=== PATIENT | male | born 1960 | race Caucasian/White ===

== ENCOUNTER 2017-11-25 18:13 | Emergency (ER) | payer OTHER, SELFPAY ==
--- NOTE | 2017-11-25 18:16 | DI.RAD.S_ITS ---
PROCEDURE: XR CHEST 1V INDICATIONS: chest pain TECHNIQUE: One view of the chest was acquired. COMPARISON: None. FINDINGS: Surgical changes and devices: None. Lungs and pleura: No pleural effusions or pneumothorax. Lungs are clear. Mediastinum: Mediastinal contours appear normal. Heart size is normal. Bones and chest wall: No suspicious bony lesions. Overlying soft tissues appear unremarkable. IMPRESSION: No acute cardiopulmonary findings. Dictated by: Batsheva Mcgill M.D. on 11/25/2017 at 18:42 Approved by: Batsheva Mcgill M.D. on 11/25/2017 at 18:43
[2017-11-25 18:19] VITALS: BP 113/83; PULSE 70; RESP 15; TEMP 36.8; O2SAT 100
--- NOTE | 2017-11-25 18:21 | ED.CHESTPAIN ---
HPI - Chest Pain General Chief Complaint: Chest Pain Stated Complaint: chest pain Time Seen by Provider: 11/25/17 18:15 Source: patient and family Mode of arrival: ambulatory Limitations: no limitations History of Present Illness HPI narrative: This is a 57-year-old male who comes to the emergency department with complaint of chest pain. Started 30 min prior to arrival. Patient tried 1 nitro sublingual which was not helpful. He he has had radiation to his right arm. He states the pain is a little bit better right now although still present at 3. Patient states that he stopped his Plavix recently as he scheduled to have a procedure on his prostate tomorrow. Patient did take aspirin x2 of 300 mg at home. Patient has a history of cardiac stent x3. He does continue to smoke. He has had umbilical hernia repair. He does take medication for blood pressure, cholesterol. He has a history of bladder cancer which has been treated. He denies alcohol. He had some Advil THC in the recent couple days. Related Data Home Medications Medication Instructions Recorded Confirmed amlodipine [Norvasc] 5 mg OR Q DAY #0 03/25/17 atorvastatin [Lipitor] 80 mg OR Q DAY #0 03/25/17 bupropion HCl [Wellbutrin SR] #0 03/25/17 carvedilol [Coreg] 25 mg OR BID #0 03/25/17 chlorthalidone 25 mg OR Q DAY #0 03/25/17 clopidogrel [Plavix] 75 mg OR Q DAY #0 03/25/17 hydrocodone-acetaminophen [[place]] 1 tab OR TID #0 03/25/17 lisinopril 20 mg OR BID #0 03/25/17 metformin [Glucophage XR] 1,000 mg OR BID #0 18 nitroglycerin [Nitrostat] PRN #0 03/25/17 Allergies Allergy/AdvReac Type Severity Reaction Status Date / Time penicillin G [PENICILLIN G] Allergy Unknown Hives Verified 11/25/17 18:26 Sulfa (Sulfonamide Allergy Unknown Hives Verified 11/25/17 18:26 Antibiotics) [SULFA (SULFONAMIDE ANTIBIOTICS)] Review of Systems Review of Systems All systems reviewed & are unremarkable except as noted in HPI and below Cardiovascular Reports chest pain and Reports radiating jaw, neck or arm pain Gastrointestinal Gastrointestinal: Denies nausea PFSH Medical History Dyslipidemia (Acute) History of bladder cancer (Acute) Hypertension (Acute) Surgical History H/O umbilical hernia repair (Acute) Hx of heart artery stent (Acute) Social History Smoking Status: Current every day smoker substance use type: marijuana Exam Narrative Exam Narrative: GENERAL: Alert and oriented x three, well-nourished, well-appearing male appears anxious. Slightly diaphoretic. Mild distress. HEENT: Head normocephalic, atraumatic, EOMI, pupils reactive, face symmetric, moist mucous membranes NECK: Supple, full range of motion CARDIOVASCULAR: Regular rate and rhythm without murmurs, rubs or gallops. RESPIRATORY: Breath sounds equal bilaterally, no wheezes rales or rhonchi. ABDOMEN: Soft, nontender. Normoactive bowel sounds all 4 quadrants. No guarding or rebound, rigidity, no mass, no bruit. EXTREMITIES: Normal range of motion, no clubbing or edema. Neurovascularly intact NEUROLOGICAL: Cranial nerves II through XII grossly intact. Moving all extremities SKIN: Warm, dry, no petechiae, no rashes or lesions. Initial Vital Signs Initial Vital Signs: Vital Signs Temperature 98.2 F 11/25/17 18:19 Pulse Rate 70 11/25/17 18:19 Respiratory Rate 15 11/25/17 18:19 Blood Pressure 113/83 11/25/17 18:19 Pulse Oximetry 100 11/25/17 18:19 Course Orders Ordered: ED Orders 11/25/17 18:15 B Type Natriuretic Peptide Stat Complete Blood Count AUTO DIFF Stat Comprehensive Metabolic Panel Stat Lipase Stat Partial Thromboplastin Time Stat Prothrombin Time INR Stat Troponin & CK Cardiac Panel Stat 11/25/17 18:16 XR chest 1V Stat EKG-12 Lead Stat Sodium Chloride (Normal Saline 0.9%) 1,000 mls @ 150 mls/hr IV CONT ZACHARY Heparin Sodium/Dextrose (Heparin Drip) 25,000 unit in 500 mls @ 24.192 mls/hr IV CONT ZACHARY; Protocol Discontinued Medications Aspirin (Aspirin Chew) 324 mg PO NOW ONE Stop: 11/25/17 18:16 Heparin Sodium (Porcine) (Heparin) 8,100 unit 80 unit/kg (8100 unit) IV NOW ONE Stop: 11/25/17 18:25 Vital Signs - 8 hr 11/25/17 18:19 Temperature 98.2 F Pulse Rate 70 Respiratory Rate 15 Blood Pressure 113/83 Pulse Oximetry 100 MDM - Chest Pain Lab Data Result diagrams: 11/25/17 18:15 11/25/17 18:15 Lab Results 11/25/17 Range/Units 18:15 WBC 8.3 (4.5-11.0) X10^3/uL RBC 5.02 (4.5-5.9) X10^6/uL Hgb 15.1 (13.5-17.5) g/dL Hct 43.9 (41-53) % MCV 87.3 (80-100) fL MCH 30.1 (26-34) PG MCHC 34.4 (30-36) % RDW 13.1 (11.6-14.8) % Plt Count 152 (150-400) X10^3/uL Neut % (Auto) 68.7 (50-75) % Lymph % (Auto) 21.8 L (25-40) % [place] % (Auto) 7.1 (3-14) % Eos % (Auto) 1.6 L (2-4) % Baso % (Auto) 0.8 (0-2) % Neut # (Auto) 5700 (0277-6887) /uL Imaging Data Chest x-ray: Attestation: I personally reviewed and interpreted this imaging study as follows: My impression: No wide mediastinum. No pneumothorax. No infiltrate. ECG Data Attestation: I personally reviewed and interpreted this ECG as follows: Prior ECG tracings: available for review Interpretation: ST elevation in leads 2 3 and AVF with depression in aVL and V2. Patient has a prior EKG with him from September 2012 which does not show any ST elevation or depression. Today's EKG shows a sinus rhythm. [facility] Narrative Medical decision making narrative: Patient's EKG suspicious for ST elevated [place]. Spoke with Dr. Barron at [facility] who accepts on plan for transport for cardiac intervention. Patient does have a prior EKG with him. These were both faxed forward to the receiving facility. Chest x-ray does not show a widened mediastinum or signs of dissection. Patient's vitals are stable here in the department. He took total of 600 aspirin at home. He had sublingual nitro at home. And received a heparin bolus 5000 unites in ED, weight >80kgs here in the emergency department. EMS present and patient being transported. is at bedside and aware of plan. Critical Care Time Critical Care Time: Yes Total Critical Care Time: 30 Attestation: The high probability of a clinically significant, sudden or life threatening deterioration of the [cardiac, respiratory] system(s) required my full and direct attention, intervention and personal management. The aggregate critical care time was [30] minutes. This time is in addition to time spent performing reported procedures but includes the following: [] Data Review and interpretation [] Patient assessment and monitoring of vital signs [] Documentation [] Medication orders and management Discharge Plan Departure Patient Disposition: [facility] Clinical Impression: ST elevation (STEMI) myocardial infarction Prescriptions: No Action amlodipine [Norvasc] 5 MG tablet 5 mg OR Q DAY Qty: 0 RF: 0 bupropion HCl [Wellbutrin SR] 150 MG tablet extended release 12 hr Qty: 0 RF: 0 atorvastatin [Lipitor] 80 MG tablet 80 mg OR Q DAY Qty: 0 RF: 0 carvedilol [Coreg] 25 MG tablet 25 mg OR BID Qty: 0 RF: 0 chlorthalidone 25 MG tablet 25 mg OR Q DAY Qty: 0 RF: 0 clopidogrel [Plavix] 75 MG tablet 75 mg OR Q DAY Qty: 0 RF: 0 hydrocodone-acetaminophen [[place]] 5 MG/325 MG tablet 1 tab OR TID Qty: 0 RF: 0 lisinopril 20 MG tablet 20 mg OR BID Qty: 0 RF: 0 nitroglycerin [Nitrostat] 0.4 MG tablet, sublingual PRNQty: 0 RF: 0 metformin [Glucophage XR] 500 MG tablet extended release 24 hr 1,000 mg OR BID Qty: 0 RF: 0
--- NOTE | 2017-11-25 18:24 | ED_ITS ---
HPI - Chest Pain General Chief Complaint: Chest Pain Stated Complaint: chest pain Time Seen by Provider: 11/25/17 18:15 Source: patient and family Mode of arrival: ambulatory Limitations: no limitations History of Present Illness HPI narrative: This is a 57-year-old male who comes to the emergency department with complaint of chest pain. Started 30 min prior to arrival. Patient tried 1 nitro sublingual which was not helpful. He he has had radiation to his right arm. He states the pain is a little bit better right now although still present at 3. Patient states that he stopped his Plavix recently as he scheduled to have a procedure on his prostate tomorrow. Patient did take aspirin x2 of 300 mg at home. Patient has a history of cardiac stent x3. He does continue to smoke. He has had umbilical hernia repair. He does take medication for blood pressure, cholesterol. He has a history of bladder cancer which has been treated. He denies alcohol. He had some Advil THC in the recent couple days. Related Data Home Medications Medication Instructions Recorded Confirmed amlodipine [Norvasc] 5 mg OR Q DAY #0 03/25/17 atorvastatin [Lipitor] 80 mg OR Q DAY #0 03/25/17 bupropion HCl [Wellbutrin SR] #0 03/25/17 carvedilol [Coreg] 25 mg OR BID #0 03/25/17 chlorthalidone 25 mg OR Q DAY #0 03/25/17 clopidogrel [Plavix] 75 mg OR Q DAY #0 03/25/17 hydrocodone-acetaminophen [[place]] 1 tab OR TID #0 03/25/17 lisinopril 20 mg OR BID #0 03/25/17 metformin [Glucophage XR] 1,000 mg OR BID #0 18 nitroglycerin [Nitrostat] PRN #0 03/25/17 Allergies Allergy/AdvReac Type Severity Reaction Status Date / Time penicillin G [PENICILLIN G] Allergy Unknown Hives Verified 11/25/17 18:26 Sulfa (Sulfonamide Allergy Unknown Hives Verified 11/25/17 18:26 Antibiotics) [SULFA (SULFONAMIDE ANTIBIOTICS)] Review of Systems Review of Systems All systems reviewed & are unremarkable except as noted in HPI and below Cardiovascular Reports chest pain and Reports radiating jaw, neck or arm pain Gastrointestinal Gastrointestinal: Denies nausea PFSH Medical History Dyslipidemia (Acute) History of bladder cancer (Acute) Hypertension (Acute) Surgical History H/O umbilical hernia repair (Acute) Hx of heart artery stent (Acute) Social History Smoking Status: Current every day smoker substance use type: marijuana Exam Narrative Exam Narrative: GENERAL: Alert and oriented x three, well-nourished, well- appearing male appears anxious. Slightly diaphoretic. Mild distress. HEENT: Head normocephalic, atraumatic, EOMI, pupils reactive, face symmetric, moist mucous membranes NECK: Supple, full range of motion CARDIOVASCULAR: Regular rate and rhythm without murmurs, rubs or gallops. RESPIRATORY: Breath sounds equal bilaterally, no wheezes rales or rhonchi. ABDOMEN: Soft, nontender. Normoactive bowel sounds all 4 quadrants. No guarding or rebound, rigidity, no mass, no bruit. EXTREMITIES: Normal range of motion, no clubbing or edema. Neurovascularly intact NEUROLOGICAL: Cranial nerves II through XII grossly intact. Moving all extremities SKIN: Warm, dry, no petechiae, no rashes or lesions. Initial Vital Signs Initial Vital Signs: Vital Signs Temperature 98.2 F 11/25/17 18:19 Pulse Rate 70 11/25/17 18:19 Respiratory Rate 15 11/25/17 18:19 Blood Pressure 113/83 11/25/17 18:19 Pulse Oximetry 100 11/25/17 18:19 Course Orders Ordered: ED Orders 11/25/17 18:15 B Type Natriuretic Peptide Stat Complete Blood Count AUTO DIFF Stat Comprehensive Metabolic Panel Stat Lipase Stat Partial Thromboplastin Time Stat Prothrombin Time INR Stat Troponin & CK Cardiac Panel Stat 11/25/17 18:16 XR chest 1V Stat EKG-12 Lead Stat Sodium Chloride (Normal Saline 0.9%) 1,000 mls @ 150 mls/hr IV CONT ZACHARY Heparin Sodium/Dextrose (Heparin Drip) 25,000 unit in 500 mls @ 24.192 mls/hr IV CONT ZACHARY; Protocol Discontinued Medications Aspirin (Aspirin Chew) 324 mg PO NOW ONE Stop: 11/25/17 18:16 Heparin Sodium (Porcine) (Heparin) 8,100 unit 80 unit/kg (8100 unit) IV NOW ONE Stop: 11/25/17 18:25 Vital Signs - 8 hr 11/25/17 18:19 Temperature 98.2 F Pulse Rate 70 Respiratory Rate 15 Blood Pressure 113/83 Pulse Oximetry 100 MDM - Chest Pain Lab Data Result diagrams: 11/25/17 18:15 11/25/17 18:15 Lab Results 11/25/17 Range/Units 18:15 WBC 8.3 (4.5-11.0) X10^3/uL RBC 5.02 (4.5-5.9) X10^6/uL Hgb 15.1 (13.5-17.5) g/dL Hct 43.9 (41-53) % MCV 87.3 (80-100) fL MCH 30.1 (26-34) PG MCHC 34.4 (30-36) % RDW 13.1 (11.6-14.8) % Plt Count 152 (150-400) X10^3/uL Neut % (Auto) 68.7 (50-75) % Lymph % (Auto) 21.8 L (25-40) % [place] % (Auto) 7.1 (3-14) % Eos % (Auto) 1.6 L (2-4) % Baso % (Auto) 0.8 (0-2) % Neut # (Auto) 5700 (2475-3815) /uL Imaging Data Chest x-ray: Attestation: I personally reviewed and interpreted this imaging study as follows: My impression: No wide mediastinum. No pneumothorax. No infiltrate. ECG Data Attestation: I personally reviewed and interpreted this ECG as follows: Prior ECG tracings: available for review Interpretation: ST elevation in leads 2 3 and AVF with depression in aVL and V2. Patient has a prior EKG with him from September 2012 which does not show any ST elevation or depression. Today's EKG shows a sinus rhythm. [facility] Narrative Medical decision making narrative: Patient's EKG suspicious for ST elevated [place]. Spoke with Dr. Barron at [facility] who accepts on plan for transport for cardiac intervention. Patient does have a prior EKG with him. These were both faxed forward to the receiving facility. Chest x-ray does not show a widened mediastinum or signs of dissection. Patient's vitals are stable here in the department. He took total of 600 aspirin at home. He had sublingual nitro at home. And received a heparin bolus 5000 unites in ED, weight >80kgs here in the emergency department. EMS present and patient being transported. is at bedside and aware of plan. Critical Care Time Critical Care Time: Yes Total Critical Care Time: 30 Attestation: The high probability of a clinically significant, sudden or life threatening deterioration of the [cardiac, respiratory] system(s) required my full and direct attention, intervention and personal management. The aggregate critical care time was [30] minutes. This time is in addition to time spent performing reported procedures but includes the following: [] Data Review and interpretation [] Patient assessment and monitoring of vital signs [] Documentation [] Medication orders and management Discharge Plan Departure Patient Disposition: [facility] Clinical Impression: ST elevation (STEMI) myocardial infarction Prescriptions: No Action amlodipine [Norvasc] 5 MG tablet 5 mg OR Q DAY Qty: 0 RF: 0 bupropion HCl [Wellbutrin SR] 150 MG tablet extended release 12 hr Qty: 0 RF: 0 atorvastatin [Lipitor] 80 MG tablet 80 mg OR Q DAY Qty: 0 RF: 0 carvedilol [Coreg] 25 MG tablet 25 mg OR BID Qty: 0 RF: 0 chlorthalidone 25 MG tablet 25 mg OR Q DAY Qty: 0 RF: 0 clopidogrel [Plavix] 75 MG tablet 75 mg OR Q DAY Qty: 0 RF: 0 hydrocodone-acetaminophen [[place]] 5 MG/325 MG tablet 1 tab OR TID Qty: 0 RF: 0 lisinopril 20 MG tablet 20 mg OR BID Qty: 0 RF: 0 nitroglycerin [Nitrostat] 0.4 MG tablet, sublingual PRNQty: 0 RF: 0 metformin [Glucophage XR] 500 MG tablet extended release 24 hr 1,000 mg OR BID Qty: 0 RF: 0
--- NOTE | 2017-11-25 18:25 | PC.NURSE ---
pt with diaphoretic, reports, chest and arm pain , better at 4/10
[2017-11-25 18:28] LABS: Add Manual Diff / Slide Review NO; Basophils Percent Auto 0.8 % (0-2); Eosinophils Percent Auto 1.6 % (2-4); Hematocrit 43.9 % (41-53); Hemoglobin 15.1 g/dL (13.5-17.5); Lymphocytes Percent Auto 21.8 % (25-40); Mean Corpuscular HGB Conc 34.4 % (30-36); Mean Corpuscular Hemoglobin 30.1 PG (26-34); Mean Corpuscular Volume 87.3 fL (80-100); Monocytes Percent Auto 7.1 % (3-14); Neutrophils Absolute Auto 5700 /uL (3000-5900); Neutrophils Percent Auto 68.7 % (50-75); Platelet Count 152 X10^3/uL (150-400); Red Blood Cell Count 5.02 X10^6/uL (4.5-5.9); Red Cell Distribution Width 13.1 % (11.6-14.8); White Blood Cell Count 8.3 X10^3/uL (4.5-11.0)
[2017-11-25 18:38] LABS: INR 1.1 (0.9-1.3); Prothrombin Time 11.4 SECONDS (10.1-12.7)
[2017-11-25 18:41] LABS: PTT Partial Thromboplastin Tim 32 SECONDS (26.4-36.2)
[2017-11-25 18:44] LABS: Alanine Aminotransferase 47 IU/L (21-72); Albumin Globulin Ratio 1.9 (1.0-2.8); Alkaline Phosphatase 77 U/L (38-126); Aspartate Aminotransferase 34 IU/L (17-59); BUN Creatinine Ratio 31.3 (6-22); Bilirubin Total 0.7 mg/dL (0.2-1.3); Blood Urea Nitrogen 25 mg/dL (9-20); Carbon Dioxide 31 mmol/L (22-32); Chloride 98 mmol/L (98-107); Creatine Kinase 69 U/L (55-170); Estimated Glomerular Filt Rate > 60.0 mL/min (>60); Globulin 2.7 g/dL (1.7-4.1); Glucose 143 mg/dL (70-100); HEMOLYSIS 34 (0-50); Lipase 252 U/L (23-300); Potassium 3.8 mmol/L (3.4-5.1); Sodium 142 mmol/L (137-145); Total Protein 7.7 g/dL (6.3-8.2)
[2017-11-25] MEDS: HEPARIN DRIP 25,000 UNIT/500 ML IV.SOLN 24.192 UNIT IV (18:44)
[2017-11-25 18:45] VITALS: BP 120/74; PULSE 64; RESP 17; O2SAT 100
[2017-11-25 18:45] LABS: B Type Natriuretic Peptide < 30.0 (<100)
[2017-11-25] MEDS: HEPARIN 5,000 UNIT/ML VIAL 5000 UNIT IV (18:45)
[2017-11-25 18:58] LABS: Troponin I < 0.012 ng/mL (0.01-0.034)
--- NOTE | 2017-11-28 15:10 | PC.NURSE ---
late entry: Pt was transferred with Heparin running.
== END 2017-11-25 18:45 | disposition short-term general hospital (02) ==
PROVIDERS: Emergency Provider Emergency Medicine
DX: I21.3 ST elevation (STEMI) myocardial infarction of unspecified site (principal)
CPT/HCPCS: 71045; 80053; 82550; 83690; 83880; 84484; 85025; 85610; 85730; 93005; 93010; 96374; 99282; 99291; J1644

== ENCOUNTER → 2017-11-28 11:58 | Outpatient (CLI) | payer OTHER, SELFPAY ==
[2017-11-28 13:46] LABS: BUN Creatinine Ratio 21.3 (6-22); Blood Urea Nitrogen 17 mg/dL (9-20); Calcium 9.7 mg/dL (8.4-10.2); Carbon Dioxide 32 mmol/L (22-32); Chloride 98 mmol/L (98-107); Estimated Glomerular Filt Rate > 60.0 mL/min (>60); Glucose 102 mg/dL (70-100); HEMOLYSIS < 15 (0-50); Potassium 4.3 mmol/L (3.4-5.1); Sodium 141 mmol/L (137-145)
== END ==
PROVIDERS: PCP Internal Medicine; Visit Provider Internal Medicine Cardiovascular Disease
DX: I25.10 Atherosclerotic heart disease of native coronary artery without angina pectoris (principal)
CPT/HCPCS: 36415; 80048

== ENCOUNTER → 2018-04-09 12:46 | Outpatient (CLI) | payer OTHER, SELFPAY ==
[2018-04-09 15:50] LABS: BUN Creatinine Ratio 25.7 (6-22); Blood Urea Nitrogen 18 mg/dL (9-20); Calcium 10.4 mg/dL (8.4-10.2); Carbon Dioxide 29 mmol/L (22-32); Chloride 97 mmol/L (98-107); Estimated Glomerular Filt Rate > 60.0 mL/min (>60); Glucose 176 mg/dL (70-100); HEMOLYSIS 16 (0-50); Potassium 3.7 mmol/L (3.4-5.1); Sodium 138 mmol/L (137-145)
== END ==
PROVIDERS: PCP Internal Medicine; Visit Provider Internal Medicine Cardiovascular Disease
DX: E87.6 Hypokalemia (principal); I10 Essential (primary) hypertension
CPT/HCPCS: 36415; 80048

== ENCOUNTER → 2019-01-15 13:37 | Outpatient (CLI) | payer OTHER, SELFPAY ==
[2019-01-15 14:15] LABS: Alanine Aminotransferase 34 IU/L (<50); Albumin 4.9 g/dL (3.5-5.0); Albumin Globulin Ratio 1.9 (1.0-2.8); Alkaline Phosphatase 80 U/L (38-126); Aspartate Aminotransferase 28 IU/L (17-59); Bilirubin Total 0.5 mg/dL (0.2-1.3); Blood Urea Nitrogen 20 mg/dL (9-20); Calcium 9.7 mg/dL (8.4-10.2); Carbon Dioxide 29 mmol/L (22-32); Chloride 97 mmol/L (98-107); Cholesterol 120 mg/dL (140-199); Estimated Glomerular Filt Rate > 60.0 mL/min (>60); Globulin 2.6 g/dL (1.7-4.1); Glucose 114 mg/dL (80-110); HDL Cholesterol 36 mg/dL (40-60); HEMOLYSIS < 15 (0-50); LDL Cholesterol Calculated 54 mg/dL (<100); Potassium 3.5 mmol/L (3.4-5.1); Sodium 137 mmol/L (137-145); Total Protein 7.5 g/dL (6.3-8.2); Triglycerides 151 mg/dL (35-150)
[2019-01-15 17:35] LABS: Hemoglobin A1C% w Est Avg Glu 6.9 % (4.0-6.0)
== END ==
PROVIDERS: Visit Provider Internal Medicine
DX: I10 Essential (primary) hypertension (principal); E11.9 Type 2 diabetes mellitus without complications; E78.5 Hyperlipidemia, unspecified
CPT/HCPCS: 36415; 80053; 80061; 83036

== ENCOUNTER → 2019-01-21 17:48 | Outpatient (CLI) | payer BC, SELFPAY ==
--- NOTE | 2019-01-21 | DI.MRI.S_ITS ---
PROCEDURE: MR LUMBAR SPINE WO CON INDICATIONS: RADICULOPATHY, LUMBOSACRAL REGION TECHNIQUE: Noncontrast sagittal T1 spin echo and T2 fast echo, sagittal STIR, axial T1 and T2 fast spin echo through the lumbar spine. In cases with scoliosis, additional coronal T2 fast spin echo may be performed. COMPARISON: None. FINDINGS: Image quality: Excellent. Alignment and Curvature: There is normal bony alignment. Bone Marrow: Marrow is of normal overall signal. Chronic appearing anterior wedge compression deformity at T12 level is seen with up to 20% loss of T12 vertebral body height anteriorly. No acute vertebral body compression fractures. Spinal Cord: Conus medullaris terminates at the T12-L1 level. Visualized cord demonstrates normal signal and size. Paraspinous Soft Tissues: No paravertebral masses. L1-L2: Normal appearance. L2-L3: Normal appearance. L3-L4: Broad-based disc bulge and mild central disc herniation with bilateral facet arthrosis is seen with mild central canal stenosis. No significant neuroforaminal narrowing. L4-L5: Decreased intervertebral disc space is seen. Diffuse disc bulge and central disc herniation with bilateral facet arthrosis and mild hypertrophy of ligamentum flavum is seen. There is mild to moderate central canal stenosis and moderate left-sided neuroforaminal narrowing with bulging disc likely contacting the left L4 and L5 nerve roots. Mild right-sided neuroforaminal narrowing is also seen. L5-S1: Normal appearance. IMPRESSION: 1. Degenerative disc bulge and bilateral facet arthrosis at L3-4 and L4-5 levels with mild central canal stenosis and left worse than right bilateral neuroforaminal narrowing as above. 2. No acute compression fracture or spondylolisthesis. Chronic appearing compression deformity involving T12 as above. Dictated by: Rasta Duenas M.D. on 01/22/2019 at 9:58 Approved by: Rasta Duenas M.D. on 01/22/2019 at 10:03
== END ==
PROVIDERS: Visit Provider Internal Medicine
DX: M51.16 Intervertebral disc disorders with radiculopathy, lumbar region (principal); M47.816 Spondylosis without myelopathy or radiculopathy, lumbar region; M48.061 Spinal stenosis, lumbar region without neurogenic claudication
CPT/HCPCS: 72148

== ENCOUNTER → 2019-07-30 10:01 | Outpatient (CLI) | payer OTHER, SELFPAY ==
[2019-07-30 11:52] LABS: Hemoglobin A1C% w Est Avg Glu 7.2 % (4.0-6.0)
[2019-07-30 12:10] LABS: Alanine Aminotransferase 37 IU/L (<50); Albumin 4.6 g/dL (3.5-5.0); Albumin Globulin Ratio 1.7 (1.0-2.8); Alkaline Phosphatase 67 U/L (38-126); Aspartate Aminotransferase 29 IU/L (17-59); BUN Creatinine Ratio 21.4 (6-22); Bilirubin Total 0.5 mg/dL (0.2-1.3); Blood Urea Nitrogen 15 mg/dL (9-20); Carbon Dioxide 33 mmol/L (22-32); Chloride 99 mmol/L (98-107); Cholesterol 111 mg/dL (140-199); Estimated Glomerular Filt Rate > 60.0 mL/min (>60); Globulin 2.7 g/dL (1.7-4.1); Glucose 175 mg/dL (80-110); HDL Cholesterol 34 mg/dL (40-60); HEMOLYSIS < 15 (0-50); LDL Cholesterol Calculated 48 mg/dL (<100); Potassium 4.6 mmol/L (3.4-5.1); Sodium 137 mmol/L (137-145); Total Protein 7.3 g/dL (6.3-8.2); Triglycerides 143 mg/dL (35-150)
== END ==
PROVIDERS: PCP Internal Medicine; Referring Provider Internal Medicine; Visit Provider Internal Medicine
DX: E11.9 Type 2 diabetes mellitus without complications (principal); E78.5 Hyperlipidemia, unspecified
CPT/HCPCS: 36415; 80053; 80061; 83036

== ENCOUNTER → 2019-11-15 10:17 | Outpatient (CLI) | payer OTHER, SELFPAY ==
[2019-11-15 11:48] LABS: Hemoglobin A1C% w Est Avg Glu 6.6 % (4.0-6.0)
[2019-11-15 11:53] LABS: Alanine Aminotransferase 31 IU/L (<50); Aspartate Aminotransferase 24 IU/L (17-59); Cholesterol 109 mg/dL (140-199); Creatine Kinase 49 U/L (55-170); HDL Cholesterol 35 mg/dL (40-60); LDL Cholesterol Calculated 47 mg/dL (<100); Triglycerides 133 mg/dL (35-150)
[2019-11-15 11:57] LABS: BUN Creatinine Ratio 20.8 (6-22); Blood Urea Nitrogen 16 mg/dL (9-20); Calcium 9.8 mg/dL (8.4-10.2); Carbon Dioxide 32 mmol/L (22-32); Chloride 101 mmol/L (98-107); Estimated Glomerular Filt Rate > 60.0 mL/min (>60); Glucose 160 mg/dL (80-110); HEMOLYSIS < 15 (0-50); Potassium 3.8 mmol/L (3.4-5.1); Sodium 138 mmol/L (137-145)
[2019-11-15 12:05] LABS: LDL Cholesterol Direct 52 mg/dL (<100)
== END ==
PROVIDERS: Specialist; PCP Internal Medicine; Referring Provider Internal Medicine Cardiovascular Disease; Visit Provider Internal Medicine Cardiovascular Disease
DX: E78.5 Hyperlipidemia, unspecified (principal); N13.8 Other obstructive and reflux uropathy; N40.1 Benign prostatic hyperplasia with lower urinary tract symptoms; E11.9 Type 2 diabetes mellitus without complications; I10 Essential (primary) hypertension
CPT/HCPCS: 36415; 80048; 80061; 82550; 83036; 83721; 84153; 84450; 84460

== ENCOUNTER → 2019-11-16 10:20 | Outpatient (CLI) | payer OTHER, SELFPAY ==
[2019-11-17 16:55] LABS: COVID19 Sendout Not Detected (Not Detect)
== END ==
PROVIDERS: PCP Internal Medicine; Visit Provider Physician Assistant
DX: Z01.812 Encounter for preprocedural laboratory examination (principal)
CPT/HCPCS: 87635

== ENCOUNTER 2019-11-19 11:19 | Day surgery (SDC) | payer OTHER, SELFPAY ==
--- NOTE | 2019-11-19 | PATH_ITS ---
[facility] Accession Number: [id number] . 01 Material submitted: . colon - TRANSVERSE COLON POLYPS . 02 Diagnosis: Transverse Colon, Polyps: Tubular adenoma x2. MRV 11/21/2019 1029 Local . 02 Electronically signed: . Edwardo Merida MD, PhD, Pathologist NPI- [id number] . 01 Gross description: . TRANSVERSE COLON POLYPS: Received in formalin are 2 fragment(s) of betts, soft tissue measuring 0.5 x 0.4 x 0.3 cm to 0.4 x 0.3 x 0.1 cm submitted entirely in 1 cassette(s) /QBJ 11/20/2019 0849 Local . 02 Pathologist provided ICD-10: D12.3 . 02 CPT . 291922 Performed at: 01 [facility] [address] [id number] MD Сергей Huff MD Phone: [phone] Performed at: [address] [facility] [address] [place], [place] [id number] MD Sue Mock MD Phone: [phone]
--- NOTE | 2019-11-19 08:24 | PM.HP.1 ---
History of Present Illness History of Present Illness Date Patient Seen: 11/19/19 Chief complaint: DX COLONOSCOPY Narrative: 59-year-old male with extensive cardiac history, type 2 diabetes, currently on Plavix who is being seen for polyp surveillance. Patient History Medical History (Updated 10/20/19 @ 15:21 by Perico Cohn MD) BPH w urinary obs/LUTS (Chronic) Coronary heart disease (Chronic) Essential hypertension (Chronic) H/O adenomatous polyp of colon (Inactive) History of primary bladder cancer (Chronic ~2006) Low back pain (Chronic ~1982) Mixed hyperlipidemia (Chronic) Type 2 diabetes mellitus (Chronic) Surgical History H/O hernia repair (Acute) H/O umbilical hernia repair (Acute) Hx of heart artery stent (Acute) Family & Social History Family History (Updated 10/20/19 @ 15:10 by Perico Cohn MD) Brother Crohn disease Tobacco & Substance use: Smoking Status Current every day smoker alcohol intake frequency 0-2 drinks per day Substance Use Type does not use Meds Home Medications and Allergies Home Medications Medication Instructions Recorded Confirmed Type nitroglycerin [Nitrostat] PRN #0 03/25/17 10/20/19 History alprazolam 1 mg tablet 1 mg PO BID PRN #2 tab 09/23/19 10/20/19 Rx Glucose Test Strips #1 ea 10/20/19 History chlorthalidone 25 mg tablet 25 mg PO Q DAY #0 10/20/19 10/20/19 History clopidogrel 75 mg tablet 75 mg PO Q DAY #0 10/20/19 10/20/19 History lisinopril 20 mg tablet 20 mg PO BID #0 10/20/19 10/20/19 History metformin 500 mg tablet,extended 500 mg PO BID #0 tab 10/20/19 10/20/19 History release 24 hr atorvastatin 80 mg tablet 80 mg PO Q DAY #90 tab 11/07/19 Rx carvedilol 12.5 mg tablet 12.5 mg PO BID #180 tab 11/07/19 Rx Allergies Allergy/AdvReac Type Severity Reaction Status Date / Time penicillin G [PENICILLIN G] Allergy Unknown Hives Verified 11/19/19 11:33 Sulfa (Sulfonamide Allergy Unknown Hives Verified 11/19/19 11:33 Antibiotics) [SULFA (SULFONAMIDE ANTIBIOTICS)] Exam Narrative Exam Narrative: General: Patient is overweight, not in apparent distress Cardiovascular: Regular rate and rhythm, no murmurs, rubs, or gallops; no evidence of edema; no palpable abdominal aortic aneurysm Gastrointestinal: Normoactive bowel sounds, soft, nontender, nondistended, no rebound tenderness, no hepatosplenomegaly, no evidence of hernia Assessment & Plan Assessment & Plan narrative: 59-year-old male who is here for colon polyp surveillance. Patient has been off Plavix for 5 days. Regarding the procedure(s), the risks and potential complications, benefits, and alternatives (including not doing the procedure) were discussed with the patient. The risks include but are not limited to bleeding, splenic injury, infection, perforation which may require surgical intervention, missed lesions, and adverse reactions to sedative medicines. After a question and answer period, the patient agreed to proceed with the procedure(s) and gives informed consent.
[2019-11-19] MEDS: SODIUM CHLORIDE 0.9% 1,000 ML 70 ML IV (11:33)
[2019-11-19 11:43] VITALS: BP 139/86; PULSE 71; RESP 18; TEMP 36.9; O2SAT 99; BMI 27.7
--- NOTE | 2019-11-19 12:06 | PM.OP.ENDO ---
Operative Date/Time/Diagnoses Date of procedure: 11/19/19 Procedure Notes Procedure in detail: Surgeon: Zachary Nation MD Procedure: Colonoscopy with polypectomy Preoperative diagnosis: Colon polyp surveillance Postoperative diagnosis: Transverse colon polyps x2 status post polypectomy, grade 1 internal hemorrhoids Medications: Conscious sedation using 6 mg IV of Midazolam and 100 mcg IV of Fentanyl Preanesthesia Assessment An H and P was performed/updated and the Px?s ASA class is 2. The procedure was discussed in detail with the patient. The potential risks and complications including infection, bleeding, missed lesions, perforation, need for surgery in case of perforation, prolonged hospital stay, and were explained. A brief question and answer period was allotted and once all questions were answered, informed consent was obtained. The patient was brought back to the procedure room and placed on standard monitoring. The patient?s vital signs were monitored continuously throughout the entire procedure. Prior to starting, a timeout was performed to confirm the patient?s identity, allergies, medications, and procedure. Procedure in detail The patient was placed in left lateral decubitus position and once adequate sedation was obtained a COLTON was performed. The digital rectal examination did not reveal any palpable lesions, and a prostate did not seem enlarged. The tip of the colonoscope was placed in the anal canal and advanced without difficulty all the way to the cecum which was identified by the appendiceal orifice and the ileocecal valve. The terminal ileum was intubated to a distance of 5 cm from the ileocecal valve with no evidence of any mucosal abnormalities. The colonoscope was then brought back to the cecum and careful examination of all hoyt of the colon was performed with irrigation of any residual stool. In the transverse colon, there was note of 2 sessile polyps measuring 4 mm which were removed by means of cold snare. Resection and retrieval was complete with minimal bleeding. Retroflexion was performed in the rectum which revealed grade 1 internal hemorrhoids. The patient tolerated the procedure well and will be brought back to the recovery area to be discharged once criteria are met. The prep was judged to be good and adequate to identify polyps less than 5 mm. The withdrawal time was 14 minutes. The total physician intraservice time was 23 minutes. Complications There were no complications and estimated blood loss was minimal. Recommendations: Resume previous diet Continue outPx medications Restart Plavix today Follow up pathology results Repeat colonoscopy in 5 or 7 years, depending on pathology results An emergency contact number was given to the patient for any complications related to the procedure
[2019-11-19] MEDS: MIDAZOLAM 5 MG/5 ML VIAL IV (12:34)
[2019-11-19 12:36] VITALS: BP 122/73; PULSE 73; RESP 12; TEMP 36.4; O2SAT 98
[2019-11-19] MEDS: fentaNYL 250 MCG/5 ML INJ IV (12:36)
[2019-11-19 12:41] VITALS: BP 129/79; PULSE 74; RESP 13; O2SAT 99
[2019-11-19 12:49] VITALS: BP 116/75; PULSE 66; RESP 14; TEMP 36.8; O2SAT 100
[2019-11-19 13:02] VITALS: BP 118/77; PULSE 72; RESP 16; TEMP 36.8; O2SAT 100
== END 2019-11-19 13:05 | disposition home or self-care (01) ==
PROVIDERS: PCP Internal Medicine; Referring Provider Internal Medicine Gastroenterology; Visit Provider Internal Medicine Gastroenterology
PROC: 0DJD8ZZ Inspection of Lower Intestinal Tract, Via Natural or Artificial Opening Endoscopic (ICD-10-PCS; CPT 45378; principal; 2019-11-19 12:30)
DX: Z12.11 Encounter for screening for malignant neoplasm of colon (principal); Z86.010 Personal history of colon polyps; E11.9 Type 2 diabetes mellitus without complications; F17.210 Nicotine dependence, cigarettes, uncomplicated; E78.5 Hyperlipidemia, unspecified; I10 Essential (primary) hypertension; I25.10 Atherosclerotic heart disease of native coronary artery without angina pectoris; N40.1 Benign prostatic hyperplasia with lower urinary tract symptoms; Z79.01 Long term (current) use of anticoagulants; K64.0 First degree hemorrhoids; D12.3 Benign neoplasm of transverse colon
CPT/HCPCS: 45385; J2250; J3010

== ENCOUNTER → 2020-01-14 13:20 | Outpatient (CLI) | payer OTHER, SELFPAY ==
--- NOTE | 2020-01-14 15:43 | DIET.PN ---
Diabetes Intake: Initial Assessment Assess: Mr. Bullock is a 59 yom referred for type 2 diabetes. He reports 5 yr hx with good control. Endorses recent changes in eating habits related to environmental stress and emotional eating. He has not been able to exercise due to back pain from an injury in his 20?s, and has associated neuropathy. He lives with his on a boat. He currently takes metformin, but he would like to discontinue by managing diabetes through improved lifestyle habits. Labs: Per pt report: A1c: 7.2 Meds: metf 500mg BID Diet: per 24 hr recall: B: scrambled eggs w/ veg and cheese; coffee L: chowders; taste testing dinner; saltines w/ cheese D: steak; pot roast w/ fresh vegetables Sn: 3/4 cup cottage cheese w/ pear halves; blueberries w/ milk Wt: 225lb Ht: 73.5in BMI: 29.3 BP: DX: Altered nutrition related laboratory values related to impaired glucose metabolism, lack of previous exposure to nutrition information as evidenced by pt report, diagnosis of diabetes, previous diet high in refined carbohydrates. Intervention: 1. Completed intake assessment. Discussed barriers to care. 2. Discussed pathophysiology of diabetes. Reviewed A1c and its correlation to blood glucose numbers. Discussed recommended BG ranges. 3. Discussed importance of self-monitoring, how often, and when to check. 4. Reviewed hyper/hypoglycemia and treatment. 5. Reviewed safe disposal of equipment (strip/lancets/insulin needles). 6. Created SMART goals for pt self-care and success. 7. Discussed program curriculum outline and class needs based on individual goals. SMART Goals: 1. Pt would like to get off of diabetes medication by improving dietary habits (carb consistency, label reading, portion control), walking daily, and goal weight of 200lb. Monitor/Evaluate: Pt will attend full DSME program. Basic Nutrition class scheduled for Feb 11.
== END ==
PROVIDERS: PCP Internal Medicine; Referring Provider Internal Medicine; Visit Provider Internal Medicine
DX: E11.40 Type 2 diabetes mellitus with diabetic neuropathy, unspecified (principal); M54.9 Dorsalgia, unspecified; Z71.3 Dietary counseling and surveillance; Z79.84 Long term (current) use of oral hypoglycemic drugs
CPT/HCPCS: G0108

== ENCOUNTER → 2020-03-03 13:44 | Outpatient (CLI) | payer OTHER, SELFPAY ==
--- NOTE | 2020-03-03 16:18 | DIET.PN ---
Diabetes: Healthy Eating 1 Intervention: ? Discussed pathophysiology of diabetes and impact of nutrition/diet on blood sugar control.? Discussed fed versus non-fed state.?? ? Reviewed importance of Balance, Variety, and Moderation. ? Discussed the effect of carbohydrates/protein/fat on blood sugar control.? ? Stressed importance of consistent carbohydrate intake at each meal and provided instructions for recommended servings/portions of carbohydrates/protein per meal. Provided educational material. ? Reviewed carbohydrate counting and measuring carbohydrate content via serving sizes and reading nutrition labels.? Provided handouts.?? ? Discussed the difference between simple versus complex carbohydrates and the effect of fiber on blood sugar control.? Discussed various methods to increase fiber content in diet. ? Discussed the plate method for creating more carbohydrate conscious balanced meals. ? Stressed importance of meal timing and not going >4-5 hours between meals. Encouraged adding protein to evening snack to support glucose control overnight. ? Discussed importance of making dietary habits part of lifestyle change.
== END ==
PROVIDERS: PCP Internal Medicine; Referring Provider Internal Medicine; Visit Provider Internal Medicine
DX: E11.9 Type 2 diabetes mellitus without complications (principal)
CPT/HCPCS: G0109

== ENCOUNTER → 2020-03-12 16:43 | Outpatient (CLI) | payer OTHER, SELFPAY ==
[2020-03-12 16:51] LABS: RBC Urine None Seen (0-5/HPF)
[2020-03-12 17:08] LABS: Appearance Urine UA SL CLOUDY; Bilirubin Urine UA NEGATIVE (NEGATIVE); Color Urine UA YELLOW; Glucose Urine UA NEGATIVE (Negative); Ketones Urine UA NEGATIVE (NEGATIVE); Leukocyte Esterase Urine UA 2+ (NEGATIVE); Nitrite Urine UA NEGATIVE (Negative); Occult Blood Urine UA NEGATIVE (Negative); Protein Urine UA NEGATIVE (Negative); Specific Gravity Urine UA 1.015 (1.000-1.035); Urobilinogen Urine UA 0.2 E.U./dL (0.2)
[2020-03-12 17:30] LABS: WBC Urine 10-30/HPF (0-5/HPF)
[2020-03-12 17:31] LABS: Amorphous Sediment Urine 1+; Bacteria Urine Many (>30); Culture Indicated Urine Specimen Cultured; Mucus Urine 1+ (Negative); Squamous Epithelial Cell Urine 0-1 /HPF (0-5/HPF)
== END ==
PROVIDERS: PCP Internal Medicine; Referring Provider Physician Assistant; Visit Provider Physician Assistant
DX: N39.0 Urinary tract infection, site not specified (principal)
CPT/HCPCS: 81001; 87077; 87086; 87186

== ENCOUNTER → 2021-04-26 07:47 | Outpatient (CLI) | payer OTHER, SELFPAY ==
[2021-04-26 08:57] LABS: Prostate Specific Antigen 1.57 ng/mL (0.10-4.00)
== END ==
PROVIDERS: PCP Internal Medicine; Referring Provider Specialist; Visit Provider Specialist
DX: N40.1 Benign prostatic hyperplasia with lower urinary tract symptoms (principal); N13.8 Other obstructive and reflux uropathy; R30.0 Dysuria; Z85.51 Personal history of malignant neoplasm of bladder
CPT/HCPCS: 36415; 51798; 81002; 84153; 87086

== ENCOUNTER → 2021-06-16 09:40 | Outpatient (CLI) | payer OTHER, SELFPAY | PROVIDERS: PCP Internal Medicine; Visit Provider Specialist | DX: R30.0 Dysuria (principal); N40.1 Benign prostatic hyperplasia with lower urinary tract symptoms; N13.8 Other obstructive and reflux uropathy; R33.9 Retention of urine, unspecified; Z85.51 Personal history of malignant neoplasm of bladder | CPT/HCPCS: 51798; 52000; 81002; 87086; 99214 ==

== ENCOUNTER → 2021-08-16 15:55 | Outpatient (ROUT) | payer OTHER, SELFPAY ==
[2021-08-16 16:11] LABS: Appearance Urine UA CLEAR; Bilirubin Urine UA NEGATIVE (NEGATIVE); Color Urine UA YELLOW; Glucose Urine UA NEGATIVE (Negative); Ketones Urine UA NEGATIVE (NEGATIVE); Leukocyte Esterase Urine UA 1+ (NEGATIVE); Nitrite Urine UA NEGATIVE (Negative); Occult Blood Urine UA NEGATIVE (Negative); Protein Urine UA NEGATIVE (Negative); Urobilinogen Urine UA 0.2 E.U./dL (0.2); pH Urine UA 7.5 (4.5-8.0)
[2021-08-16 16:33] LABS: Amorphous Sediment Urine 2+; Bacteria Urine Few (2-10); Culture Indicated Urine Specimen Cultured; RBC Urine None Seen (0-5/HPF); Squamous Epithelial Cell Urine 0-1 /HPF (0-5/HPF); WBC Urine 5-10/HPF (0-5/HPF)
== END ==
PROVIDERS: PCP Internal Medicine; Visit Provider Specialist
DX: R30.0 Dysuria (principal)
CPT/HCPCS: 81001; 87086

== ENCOUNTER → 2021-08-31 11:36 | Outpatient (CLI) | payer OTHER, SELFPAY | PROVIDERS: PCP Internal Medicine; Visit Provider Specialist | DX: N40.1 Benign prostatic hyperplasia with lower urinary tract symptoms (principal); N13.8 Other obstructive and reflux uropathy; R30.0 Dysuria; Z85.51 Personal history of malignant neoplasm of bladder | CPT/HCPCS: 51798; 81002; 87086; 99215 ==

== ENCOUNTER → 2021-11-09 11:40 | Outpatient (CLI) | payer OTHER, SELFPAY ==
[2021-11-09 12:16] LABS: COVID19 -Nasal RAPID Negative (Negative)
== END ==
PROVIDERS: PCP Internal Medicine; Visit Provider Specialist
DX: N40.1 Benign prostatic hyperplasia with lower urinary tract symptoms (principal); N13.8 Other obstructive and reflux uropathy; R33.9 Retention of urine, unspecified; Z85.51 Personal history of malignant neoplasm of bladder; Z20.822 Contact with and (suspected) exposure to COVID-19
CPT/HCPCS: 81002; 87086; 87635; 99215

== ENCOUNTER 2021-11-11 06:04 | Day surgery (SDC) | payer OTHER, SELFPAY ==
[2021-11-08 12:21] VITALS: BMI 28.8
--- NOTE | 2021-11-11 | PATH_ITS ---
Note [facility] Accession Number: [id number] TESTS RESULT FLAG UNITS REF RANGE LAB Clinician Provided Cytology Information No. of containers..01 Urine Bottle Source: URINE DIAGNOSIS: URINE NEGATIVE FOR HIGH-GRADE UROTHELIAL CARCINOMA ([facility]). ATYPICAL UROTHELIAL TISSUE FRAGMENTS ARE PRESENT. DIFFERENTIAL DIAGNOSIS INCLUDES INSTRUMENTATION, LITHIASIS AND LOW GRADE NEOPLASM. Pathologist ICD10: R82.89 Signed out by: Vidhya Quan MD, Pathologist NPI- [id number] Performed by: Jeremiah Rader, Music Manager ([facility]) Gross description: 40 CC, YELLOW, CLEAR RECEIVED: FRESH IN ORANGE CAP CONTAINER. /VDU 11/14/2021 0637 Local FLAG LEGEND: L-Low Normal,H-High Normal,LL-Alert Low,HH-Alert High <-Panic Low,>-Panic High,A-Abnormal,AA-Critical Abnormal Performed at: 01 =Z [facility] [address], [place] [address] Сергей Huff MD, Performed at: 01 [facility] [address], [place], [place] [id number] MD Сергей Huff MD Phone: [phone]
[2021-11-11 06:56] VITALS: BP 130/80; PULSE 71; RESP 16; TEMP 36.2; O2SAT 97; BMI 28.8
[2021-11-11] MEDS: VANCOMYCIN 1,000 MG/200 ML PIGGYBACK 200 MG IV (07:16)
--- NOTE | 2021-11-11 07:16 | PM.PREOP ---
Pre-operative Note COVID-19 Criteria for continued procedure: Possibility delay results in more complex future surgery or treatment, Deterioration of the patient's condition or overall health, Delay expected to result in less-positive ultimate med/surg outcome and Non-surgical alternatives not available or appropriate per current SOC Interval Note History & Physical reviewed/Exam performed by Physician: Yes Changes to H&P: No
[2021-11-11] MEDS: LACTATED RINGERS 1,000 ML 42 ML IV (07:17)
[2021-11-11] MEDS: GENTAMICIN 160 MG in SODIUM CHLORIDE 0.9% 100 ML 104 MG IV (08:15)
--- NOTE | 2021-11-11 08:16 | SUR.OPER ---
Lithotomy on padded OR bed, head on pillow, arms secured on padded arm boards at <90 degrees abduction. Legs secured in padded yellow fins stirrups.
--- NOTE | 2021-11-11 08:44 | PM.OP.1 ---
Operative Date/Time/Diagnoses Date of procedure: 11/11/21 Time of procedure: 08:44 Pre-op diagnosis: History of bladder cancer Post-op diagnosis: same Procedure & Clinicians Procedure: 1. Cystoscopy. Same procedure as scheduled: Yes Indications: 1. History of bladder cancer. 2. Medical anxiety. Surgeon: Leiv Palmer Click Yes if Unassisted: Yes Anesthesia Type: General Operative Notes Findings: 1. Urethra-normal caliber without lesion or annular stricture. 2. External sphincter-coapted with normal overlying urothelium. 3. Prostate -4.5 cm length with moderately obstructing trilobar hyperplasia. There is prominent benign mucosal varices and numerous benign mucosal inflammatory polyps. Additionally there were numerous benign epithelial calcifications predominantly in the region of the Veru and mid prostate urethra. 4. Bladder-1+ trabeculation. Normal ureteral orifices bilaterally. No evidence of stone, tumor, foreign body or diverticulum. Closure Type: not applicable Specimen(s): other (Urine for cytology.) Estimated Blood Loss (mL): 0 Blood products transfused: none Procedure in detail: Patient was positioned supine was administered general anesthesia. He was then repositioned semi lithotomy and the lower abdomen, genitalia, and groin were then prepped and draped in sterile fashion. The flexible endoscope was then passed into the lower urinary tract with the findings as described above. A 60 cc Luer lock syringe was used to empty retained bladder contents, approximately 600 cc. A urine specimen was submitted for cytology. Careful visualization was then conducted with the findings as described above. The flexible cystoscope was then removed. A 16 Irish red rubber catheter was then advanced into lower urinary tract in the bladder contents were drained. The red rubber catheter was then removed. The patient was then repositioned in supine, was awakened, and transferred to a [facility] for transport to PACU. Complications: none Post-operative Condition: stable Disposition: PACU Plan for aftercare: Discharge home.
[2021-11-11 08:48] VITALS: BP 91/61; PULSE 74; RESP 15; TEMP 36; O2SAT 97
[2021-11-11 08:52] VITALS: BP 92/62; PULSE 73; RESP 17; O2SAT 96
[2021-11-11 08:57] VITALS: BP 98/70; PULSE 70; RESP 22; O2SAT 96
[2021-11-11 09:02] VITALS: BP 98/64; PULSE 67; RESP 21; O2SAT 98
[2021-11-11 09:07] VITALS: BP 94/63; PULSE 74; RESP 16; O2SAT 98
== END 2021-11-11 09:24 | disposition home or self-care (01) ==
PROVIDERS: PCP Internal Medicine; Referring Provider Specialist; Visit Provider Specialist
PROC: 0TBB8ZZ Excision of Bladder, Via Natural or Artificial Opening Endoscopic (ICD-10-PCS; CPT 52000; principal; 2021-11-11 07:45)
DX: Z85.51 Personal history of malignant neoplasm of bladder (principal); N40.0 Benign prostatic hyperplasia without lower urinary tract symptoms; I10 Essential (primary) hypertension; I25.2 Old myocardial infarction
CPT/HCPCS: 52000; 00910; J1100; J1170; J2405; J2704

== ENCOUNTER → 2022-10-20 15:25 | Outpatient (CLI) | payer OTHER, SELFPAY | PROVIDERS: Referring Provider Urology; Visit Provider Urology | DX: N13.8 Other obstructive and reflux uropathy (principal); R33.9 Retention of urine, unspecified; N40.1 Benign prostatic hyperplasia with lower urinary tract symptoms; Z85.51 Personal history of malignant neoplasm of bladder | CPT/HCPCS: 87086 ==

== ENCOUNTER 2022-12-18 10:22 | Emergency (ER) | payer OTHER, SELFPAY ==
[2022-12-18 11:22] VITALS: BP 139/90; PULSE 89; RESP 18; TEMP 36.8; O2SAT 99; BMI 28.2
[2022-12-18] MEDS: ACETAMINOPHEN 325 MG TABLET 975 MG PO (12:28)
[2022-12-18 12:41] LABS: Appearance Urine UA CLOUDY; Bilirubin Urine UA NEGATIVE (NEGATIVE); Color Urine UA BROWN; Glucose Urine UA NEGATIVE (Negative); Ketones Urine UA NEGATIVE (NEGATIVE); Leukocyte Esterase Urine UA 3+ (NEGATIVE); Nitrite Urine UA POSITIVE (Negative); Occult Blood Urine UA 3+ (Negative); Protein Urine UA 3+ (Negative)
[2022-12-18 13:04] VITALS: BP 132/81; PULSE 87; O2SAT 99
[2022-12-18 13:06] LABS: Bacteria Urine Many (>30); Culture Indicated Urine Specimen Cultured; RBC Urine >100/HPF (0-5/HPF); Squamous Epithelial Cell Urine 10-30 /HPF (0-5/HPF); WBC Urine >100/HPF (0-5/HPF)
--- NOTE | 2022-12-18 13:17 | DI.CT.S_ITS ---
PROCEDURE: CT ABDOMEN PELVIS W CON INDICATIONS: ?stones; abdominal tenderness TECHNIQUE: After the administration of IV contrast, axial sections were acquired from the lung bases to the pubic symphysis. Coronal and sagittal reformats were performed. For radiation dose reduction, the following was used: automated exposure control, adjustment of mA and/or kV according to patient size. COMPARISON: None. FINDINGS: Image quality: Excellent. Lung bases: Unremarkable. Heart: No significant findings. ABDOMEN: Liver: Liver is enlarged measuring 21.8 cm with steatosis. There are ill-defined low-attenuation foci within the dome the largest measuring 2.1 cm on series 2, image 14. In addition, there is a partially enhancing focus in the anterior aspect of the right hepatic lobe measuring approximately 1.4 cm on series 2, image 26. Gallbladder: Unremarkable. Biliary ducts: Unremarkable. Pancreas: Unremarkable. Spleen: Unremarkable. Adrenal Glands: Right adrenal nodule is present measuring 2.4 cm. Nodule is also present on the left measuring 1 cm. Kidneys and Ureters: Simple left renal cysts are present. No obstruction. No stones. Stomach and Bowel: Stomach, small bowel loops, and colon are unremarkable. Appendix is normal. Peritoneum: No abnormal intraperitoneal fluid. No free air. Ventral Wall: No hernia. Abdominal Nodes: No retroperitoneal or mesenteric adenopathy by size criteria. Vessels: Aorta and inferior vena cava are normal in size. PELVIS: Pelvic Organs: Unremarkable. Bladder: The bladder demonstrates incomplete distention. However, there is irregular diffuse appearance of bladder wall thickening. The prostate gland is enlarged. Pelvic Nodes: No enlarged lymph nodes. Miscellaneous: Bilateral fat containing inguinal hernias. Bones: Unremarkable. IMPRESSION: Irregularly thickened incompletely distended bladder as above. Overall appearance may be reflective of chronic outlet obstruction. However, imaging appearance can be similar with infection or inflammation. Recommend correlation to patient's symptoms and urinalysis. Dictated by: Tarsha Woodard M.D. on 12/18/2022 at 14:45 Approved by: Tarsha Woodard M.D. on 12/18/2022 at 14:48
[2022-12-18 14:06] LABS: Add Manual Diff / Slide Review NO; Basophils Absolute Auto 0 /uL (0-100); Basophils Percent Auto 0.2 % (0-2); Eosinophils Absolute Auto 100 /uL (0-450); Eosinophils Percent Auto 0.7 % (2-4); Hemoglobin 13.9 g/dL (13.5-17.5); Lymphocytes Absolute Auto 900 /uL (1100-4500); Lymphocytes Percent Auto 10.6 % (25-40); Mean Corpuscular HGB Conc 34.8 % (30-36); Mean Corpuscular Hemoglobin 30.3 PG (26-34); Mean Corpuscular Volume 86.9 fL (80-100); Monocytes Absolute Auto 600 /uL (0-900); Monocytes Percent Auto 6.8 % (3-14); Neutrophils Absolute Auto 6900 /uL (1500-7000); Neutrophils Percent Auto 81.7 % (50-75); Platelet Count 174 X10^3/uL (150-400); Red Blood Cell Count 4.61 X10^6/uL (4.5-5.9); Red Cell Distribution Width 12.7 % (11.6-14.8); White Blood Cell Count 8.4 X10^3/uL (4.5-11.0)
[2022-12-18 14:12] LABS: Alanine Aminotransferase 33 IU/L (<50); Albumin 4.7 g/dL (3.5-5.0); Albumin Globulin Ratio 1.5 (1.0-2.8); Alkaline Phosphatase 82 U/L (38-126); Aspartate Aminotransferase 24 IU/L (17-59); BUN Creatinine Ratio 23.2 (6-22); Bilirubin Total 0.6 mg/dL (0.2-1.3); Blood Urea Nitrogen 16 mg/dL (9-20); Calcium 10.3 mg/dL (8.4-10.2); Carbon Dioxide 25 mmol/L (22-32); Chloride 99 mmol/L (98-107); Estimated Glomerular Filt Rate > 60 mL/min (>60); Globulin 3.1 g/dL (1.7-4.1); Glucose 172 mg/dL (80-110); HEMOLYSIS < 15 (0-50); Lipase 38 U/L (23-300); Potassium 4.5 mmol/L (3.4-5.1); Sodium 134 mmol/L (137-145); Total Protein 7.8 g/dL (6.3-8.2)
[2022-12-18 15:26] VITALS: BP 135/79; PULSE 78; O2SAT 99
--- NOTE | 2022-12-18 17:41 | ED.MALEGU ---
HPI - Male Genitourinary <Jina Mejia PA-C - Last Filed: 12/18/22 17:51> General Chief complaint: Urogenital-Male Stated complaint: passing stones Time Seen by Provider: 12/18/22 11:58 Source: patient Mode of arrival: Ambulatory History of Present Illness HPI Narrative: 62-year-old male with past medical history bladder cancer, nephrolithiasis, diabetes, CAD, BPH with urinary obstruction/LUTS presents to the ED with 4 days of urinary frequency, urinary urgency, dysuria, abdominal and suprapubic pain. Patient does endorse a history of nephrolithiasis back in 2013. Patient is followed by Dr. Palmer. Patient is on Flomax. Patient denies fever, chills, nausea, vomiting. Related Data Home Medications Medication Instructions Recorded Confirmed nitroglycerin 0.4 mg sublingual PRN Pain (Scale Score 4-6) ##0 03/25/17 11/09/21 tablet (Nitrostat) Glucose Test Strips #1 ea 10/20/19 11/09/21 clopidogrel 75 mg tablet (Plavix) 75 mg PO Q DAY ##0 10/20/19 11/11/21 metformin 500 mg tablet,extended 500 mg PO BID #0 tabs 10/20/19 11/11/21 release 24 hr (Glucophage XR) acetaminophen 500 mg tablet 500 mg PO QID PRN Pain (Scale 11/19/19 11/09/21 (Tylenol Extra Strength) Score 1-3) aspirin 81 mg chewable tablet 81 mg PO DAILY 11/19/19 11/11/21 lisinopril 20 mg tablet 40 mg PO BID #0 tabs 01/20/20 11/11/21 Previous Rx's Medication Instructions Recorded carvedilol 12.5 mg tablet 12.5 mg PO BID #180 tabs 11/07/19 atorvastatin 80 mg tablet (Lipitor) 80 mg PO Q DAY #90 tabs 11/22/20 tamsulosin 0.4 mg capsule 0.4 mg .Route .COMPLEX #90 caps 06/16/21 oxycodone 5 mg tablet 5 mg PO Q4H PRN pain #10 tabs 11/11/21 ciprofloxacin HCl 500 mg tablet 500 mg PO Q12H 10 days #20 tabs 12/18/22 Allergies Allergy/AdvReac Type Severity Reaction Status Date / Time penicillin G [PENICILLIN G] Allergy Unknown Hives Verified 12/18/22 11:31 Sulfa (Sulfonamide Allergy Unknown Hives Verified 12/18/22 11:31 Antibiotics) [SULFA (SULFONAMIDE ANTIBIOTICS)] Review of Systems <Jina Mejia PA-C - Last Filed: 12/18/22 17:51> Constitutional Constitutional: Denies chills, Denies fatigue, Denies fever(s), Denies frequent falls, Denies lethargy and Denies weakness Eyes Eyes: Denies change in vision, Denies eye discharge, Denies irritation and Denies loss of vision ENT Ears, Nose, Mouth, and Throat: Denies change in voice, Denies dizziness, Denies neck pain, Denies sore throat and Denies throat swelling Cardiovascular Cardiovascular: Denies chest pain, Denies irregular heart rhythm, Denies lightheadedness, Denies palpitations, Denies dyspnea, Denies dyspnea on exertion and Denies orthopnea Respiratory Respiratory: Denies cough, Denies dyspnea, Denies dyspnea on exertion and Denies wheezing Gastrointestinal Gastrointestinal: Reports abdominal pain, Denies change in bowel habits, Denies diarrhea, Denies nausea and Denies vomiting Genitourinary Genitourinary: Reports dysuria, Reports dysuria, Reports urinary frequency and Reports urinary urgency Musculoskeletal Musculoskeletal: Denies neck pain and Denies numbness Integumentary/Breasts Skin/Breast: Denies pruritus, Denies erythema, Denies rash and Denies wounds Neurologic Neurologic: Denies behavioral changes, Denies confusion, Denies dizziness, Denies frequent falls, Denies loss of vision, Denies numbness and Denies weakness Psychiatric Psychiatric: Denies anxiety, Denies behavioral changes, Denies confusion, Denies depression, Denies homicidal ideation and Denies suicidal ideation Endocrine Endocrine: Denies fatigue, Denies flushing and Denies palpitations Hematologic/Lymphatic Hematologic/Lymphatic: Denies easy bruising Allergic/Immunologic Allergic/Immunologic: Denies urticaria, Denies throat swelling and Denies wheezing Patient History <Jina Mejia PA-C - Last Filed: 12/18/22 17:51> Medical History Ankle pain (~1977) BPH w urinary obs/LUTS CAD S/P percutaneous coronary angioplasty (03/26/18) Carpal tunnel syndrome (~2002) Coronary heart disease (~2006) Essential hypertension Foot pain (~2006) H/O adenomatous polyp of colon History of primary bladder cancer (~2006) Low back pain (~1982) Mixed hyperlipidemia Myocardial infarction (~2006) Neuropathy Non-ST elevation [place] (NSTEMI) (11/27/17) Sciatic nerve disease (~2016) Shoulder pain (~2007) Type 2 diabetes mellitus (~2009) Urinary retention Surgical History Bladder cancer (~2006) H/O hernia repair (~2003) H/O umbilical hernia repair Hx of heart artery stent Family History Brother Crohn disease Father History of heart disease Hyperlipidemia Hypertension Stroke Family/Other No problems noted. Social History household members: spouse Smoking Status: Current every day smoker alcohol intake: former substance use type: marijuana Type(s) of exercise: walking Smoking Status: Current every day smoker alcohol intake frequency: 0-2 drinks per day Substance Use Type: marijuana Exam <Jina Mejia PA-C - Last Filed: 12/18/22 17:51> Narrative Exam Narrative: Const General:?cooperative, healthy appearing and comfortable [facility] Head:?normal to inspection Ears:?hearing grossly normal bilaterally Nose:?external nose normal Face and sinus:?normal facial exam and sinuses nontender Mouth:?oral mucosae normal Throat:?posterior oropharynx normal Eyes General:?appearance normal, both eyes and all related structures Neck Neck:?normal visual inspection and no lymphadenopathy noted Resp Effort & Inspection:?normal respiratory effort Auscultation:?clear to auscultation bilaterally Cardio Rate:?regular rate Rhythm:?regular rhythm GI Abdomen is soft, nondistended, with diffuse abdominal tenderness. CVA tenderness Neuro General:?patient alert, patient awake and patient oriented x3 Initial Vital Signs Initial Vital Signs: Vital Signs Temperature 98.3 F 12/18/22 11:22 Pulse Rate 89 12/18/22 11:22 Respiratory Rate 18 12/18/22 11:22 Blood Pressure 139/90 12/18/22 11:22 Pulse Oximetry 99 12/18/22 11:22 Oxygen Delivery Method Room Air 12/18/22 11:22 <Macy Antoine DO - Last Filed: 12/18/22 18:52> Initial Vital Signs Initial Vital Signs: Vital Signs Temperature 98.3 F 12/18/22 11:22 Pulse Rate 89 12/18/22 11:22 Respiratory Rate 18 12/18/22 11:22 Blood Pressure 139/90 12/18/22 11:22 Pulse Oximetry 99 12/18/22 11:22 Oxygen Delivery Method Room Air 12/18/22 11:22 Course <Jina Mejia PA-C - Last Filed: 12/18/22 17:51> Orders Ordered: ED Orders 12/18/22 11:28 Urinalysis and Microscopic Stat Urine Culture Stat 12/18/22 13:17 CT abdomen pelvis w con Stat 12/18/22 13:37 CBC Auto Diff [Complete Blood Count AUTO DIFF] Stat CMP [Comprehensive Metabolic Panel] Stat Lipase Stat Discontinued Medications Acetaminophen (Acetaminophen 325 Mg Tablet) 975 mg PO NOW ONE Stop: 12/18/22 11:52 Last Admin: 12/18/22 12:28 Dose: 975 mg Documented By: RB Vital Signs Vital signs: Vital Signs - 8 hr 12/18/22 11:22 12/18/22 13:04 12/18/22 15:26 Temperature 98.3 F Pulse Rate 89 87 78 Respiratory Rate 18 Blood Pressure 139/90 132/81 135/79 Pulse Oximetry 99 99 99 Oxygen Delivery Method Room Air Room Air Room Air <Macy Antoine DO - Last Filed: 12/18/22 18:52> Orders Ordered: ED Orders 12/18/22 11:28 Urinalysis and Microscopic Stat Urine Culture Stat 12/18/22 13:17 CT abdomen pelvis w con Stat 12/18/22 13:37 CBC Auto Diff [Complete Blood Count AUTO DIFF] Stat CMP [Comprehensive Metabolic Panel] Stat Lipase Stat Discontinued Medications Acetaminophen (Acetaminophen 325 Mg Tablet) 975 mg PO NOW ONE Stop: 12/18/22 11:52 Last Admin: 12/18/22 12:28 Dose: 975 mg Documented By: RB Vital Signs Vital signs: Vital Signs - 8 hr 12/18/22 11:22 12/18/22 13:04 12/18/22 15:26 Temperature 98.3 F Pulse Rate 89 87 78 Respiratory Rate 18 Blood Pressure 139/90 132/81 135/79 Pulse Oximetry 99 99 99 Oxygen Delivery Method Room Air Room Air Room Air MDM - Male Genitourinary <Jina Mejia PA-C - Last Filed: 12/18/22 17:51> Lab Data 12/18/22 13:37 12/18/22 13:37 Labs: Lab Results 12/18/22 12/18/22 Range/Units 11:28 13:37 WBC 8.4 (4.5-11.0) X10^3/uL RBC 4.61 (4.5-5.9) X10^6/uL Hgb 13.9 (13.5-17.5) g/dL Hct 40.0 L (41-53) % MCV 86.9 (80-100) fL MCH 30.3 (26-34) PG MCHC 34.8 (30-36) % RDW 12.7 (11.6-14.8) % Plt Count 174 (150-400) X10^3/uL Neut % (Auto) 81.7 H (50-75) % Lymph % (Auto) 10.6 L (25-40) % [place] % (Auto) 6.8 (3-14) % Eos % (Auto) 0.7 L (2-4) % Baso % (Auto) 0.2 (0-2) % Neut # (Auto) 6900 (5199-2858) /uL Lymph # (Auto) 900 L (9235-9316) /uL [place] # (Auto) 600 (0-900) /uL Eos # (Auto) 100 (0-450) /uL Baso # (Auto) 0 (0-100) /uL Sodium 134 L (137-145) mmol/L Potassium 4.5 (3.4-5.1) mmol/L Chloride 99 (98-107) mmol/L Carbon Dioxide 25 (22-32) mmol/L BUN 16 (9-20) mg/dL Creatinine 0.69 (0.66-1.25) mg/dL Estimated GFR > 60 (>60) mL/min BUN/Creatinine Ratio 23.2 H (6-22) Glucose 172 H (80-110) mg/dL Calcium 10.3 H (8.4-10.2) mg/dL Total Bilirubin 0.6 (0.2-1.3) mg/dL AST 24 (17-59) IU/L ALT 33 (<50) IU/L Alkaline Phosphatase 82 (38-126) U/L Total Protein 7.8 (6.3-8.2) g/dL Albumin 4.7 (3.5-5.0) g/dL Globulin 3.1 (1.7-4.1) g/dL Albumin/Globulin Ratio 1.5 (1.0-2.8) Lipase 38 (23-300) U/L Urine Color Brown Urine Appearance Cloudy Urine pH 7.0 (4.5-8.0) Ur Specific [place] 1.020 (1.000-1.035) Urine Protein 3+ H (Negative) Urine Glucose (UA) Negative (Negative) g/dL Urine Ketones Negative (NEGATIVE) Urine Occult Blood 3+ H (Negative) Urine Nitrate Positive H (Negative) Urine Bilirubin Negative (NEGATIVE) Urine Urobilinogen 1.0 (0.2) E.U./dL Ur Leukocyte Esterase 3+ H (NEGATIVE) Urine RBC >100/hpf H (0-5/HPF) Urine WBC >100/hpf H (0-5/HPF) Ur Squamous Epith Cells 10-30 /hpf H D (0-5/HPF) Urine Bacteria Many (>30) H (None) Ur Culture Indicated? Specimen cultured Point of Care Testing Glucose POC 183 MDM Narrative Medical decision making narrative: 62-year-old male with past medical history bladder cancer, nephrolithiasis, diabetes, CAD, BPH with urinary obstruction/LUTS presents to the ED with 4 days of urinary frequency, urinary urgency, dysuria, abdominal and suprapubic pain. Concern for UTI versus pyelonephritis versus nephrolithiasis versus other intra-abdominal pathology versus other. Given patient's history of nephrolithiasis, tender abdomen, will obtain CT abdomen pelvis to rule out an obstructing stone or other intra-abdominal pathology. Will obtain labs, UA. UA is positive for UTI with positive leukocyte esterase, positive nitrates, greater than 100 urine WBC. There is also greater than 100 urine RBC as well as urine protein. Labs were within normal limits. CT abdomen pelvis shows a irregularly thickened incompletely distended bladder, which might be reflective of a chronic outlet obstruction or also consistent with infection or inflammation. There were some incidental findings that include bilateral adrenal nodules, ill-defined low-attenuation foci within the hepatic dome with Hounsfield units greater than expected for simple cyst, requiring correlation to any known primary malignancy for consideration of possible metastatic disease. Discussed all the findings with patient. Prescribed ciprofloxacin which patient has had in the past for UTIs. Recommend follow-up with PCP for the incidental CT findings. Recommend follow-up with Dr. Palmer for further evaluation. ED return precautions were discussed with patient. Patient verbalized understanding. Medical records reviewed: Yes <Macy Antoine, DO - Last Filed: 12/18/22 18:52> Lab Data Labs: Lab Results 12/18/22 12/18/22 Range/Units 11:28 13:37 WBC 8.4 (4.5-11.0) X10^3/uL RBC 4.61 (4.5-5.9) X10^6/uL Hgb 13.9 (13.5-17.5) g/dL Hct 40.0 L (41-53) % MCV 86.9 (80-100) fL MCH 30.3 (26-34) PG MCHC 34.8 (30-36) % RDW 12.7 (11.6-14.8) % Plt Count 174 (150-400) X10^3/uL Neut % (Auto) 81.7 H (50-75) % Lymph % (Auto) 10.6 L (25-40) % [place] % (Auto) 6.8 (3-14) % Eos % (Auto) 0.7 L (2-4) % Baso % (Auto) 0.2 (0-2) % Neut # (Auto) 6900 (4405-7658) /uL Lymph # (Auto) 900 L (6959-8428) /uL [place] # (Auto) 600 (0-900) /uL Eos # (Auto) 100 (0-450) /uL Baso # (Auto) 0 (0-100) /uL Sodium 134 L (137-145) mmol/L Potassium 4.5 (3.4-5.1) mmol/L Chloride 99 (98-107) mmol/L Carbon Dioxide 25 (22-32) mmol/L BUN 16 (9-20) mg/dL Creatinine 0.69 (0.66-1.25) mg/dL Estimated GFR > 60 (>60) mL/min BUN/Creatinine Ratio 23.2 H (6-22) Glucose 172 H (80-110) mg/dL Calcium 10.3 H (8.4-10.2) mg/dL Total Bilirubin 0.6 (0.2-1.3) mg/dL AST 24 (17-59) IU/L ALT 33 (<50) IU/L Alkaline Phosphatase 82 (38-126) U/L Total Protein 7.8 (6.3-8.2) g/dL Albumin 4.7 (3.5-5.0) g/dL Globulin 3.1 (1.7-4.1) g/dL Albumin/Globulin Ratio 1.5 (1.0-2.8) Lipase 38 (23-300) U/L Urine Color Brown Urine Appearance Cloudy Urine pH 7.0 (4.5-8.0) Ur Specific [place] 1.020 (1.000-1.035) Urine Protein 3+ H (Negative) Urine Glucose (UA) Negative (Negative) g/dL Urine Ketones Negative (NEGATIVE) Urine Occult Blood 3+ H (Negative) Urine Nitrate Positive H (Negative) Urine Bilirubin Negative (NEGATIVE) Urine Urobilinogen 1.0 (0.2) E.U./dL Ur Leukocyte Esterase 3+ H (NEGATIVE) Urine RBC >100/hpf H (0-5/HPF) Urine WBC >100/hpf H (0-5/HPF) Ur Squamous Epith Cells 10-30 /hpf H D (0-5/HPF) Urine Bacteria Many (>30) H (None) Ur Culture Indicated? Specimen cultured Point of Care Testing Glucose POC 183 Discharge Plan Departure Patient Disposition: Home Clinical Impression: UTI (urinary tract infection) Qualifiers: Urinary tract infection type: acute cystitis Hematuria presence: with hematuria Qualified Code(s): N30.01 - Acute cystitis with hematuria Instructions: DI for Urinary Tract Infection (UTI) Activity Restrictions/Additional Instructions: You were evaluated in the ED today for frequent and painful urination. Your labs and CT scan were normal. Your urine did show a urinary tract infection for which you are being prescribed antibiotics. Please take those as prescribed. Please follow-up with Dr. Palmer as soon as possible for further evaluation. Return to the ED if you have worsening symptoms, fever, chills, persistent vomiting. Prescriptions: New ciprofloxacin HCl 500 mg tablet 500 mg PO Q12H 10 Days Qty: 20 0RF No Action nitroglycerin [Nitrostat] 0.4 MG tablet, sublingual PRN (Reason: Pain (Scale Score 4-6)) Qty: 0 carvedilol 12.5 mg tablet 12.5 mg PO BID Qty: 180 3RF Rx Instructions: must administer with a meal/food atorvastatin [Lipitor] 80 mg tablet 80 mg PO Q DAY Qty: 90 0RF Rx Instructions: PT DUE FOR APPT W/PCP PRIOR TO END OF RX. PLEASE CALL TO SCHEDULE. THANKS 11/22/20 (DME) Glucose Test Strips Qty: 1 Rx Instructions: Tests 4x a day/ metformin [Glucophage XR] 500 mg tablet extended release 24 hr 500 mg PO BID Qty: 0 clopidogrel [Plavix] 75 mg tablet 75 mg PO Q DAY Qty: 0 lisinopril 20 mg tablet 40 mg PO BID Qty: 0 acetaminophen [Tylenol Extra Strength] 500 mg Tablet 500 mg PO QID PRN (Reason: Pain (Scale Score 1-3)) aspirin 81 mg Tablet,Chewable 81 mg PO DAILY oxycodone 5 mg tablet 5 mg PO Q4H PRN (Reason: pain) Qty: 10 0RF tamsulosin 0.4 mg capsule 0.4 mg .ROUTE .COMPLEX Qty: 90 3RF Rx Instructions: 0.4 mg; Referrals: Miscellaneous,Doctor, MD [Primary Care Provider] - Stand Alone Forms: Patient Portal/API ED Sign-out <Macy Antoine DO - Last Filed: 12/18/22 18:52> Cosign ED Attending Elena Attestation: I was immediately available in the department for consultation. Documentation has been reviewed.
== END 2022-12-18 15:25 | disposition home or self-care (01) ==
PROVIDERS: Emergency Provider Student in an Organized Health Care Education/Training Program
DX: N30.01 Acute cystitis with hematuria (principal); R10.30 Lower abdominal pain, unspecified; Z79.899 Other long term (current) drug therapy
CPT/HCPCS: 36415; 51798; 74177; 80053; 81001; 82962; 83690; 85025; 87077; 87086; 87186; 99284; Q9967

== ENCOUNTER → 2022-12-20 08:56 | Outpatient (CLI) | payer OTHER, SELFPAY | PROVIDERS: PCP Internal Medicine; Visit Provider Specialist | DX: N30.01 Acute cystitis with hematuria (principal); N40.1 Benign prostatic hyperplasia with lower urinary tract symptoms; N13.8 Other obstructive and reflux uropathy; Z87.440 Personal history of urinary (tract) infections; Z85.51 Personal history of malignant neoplasm of bladder | CPT/HCPCS: 51798; 81002; 87086; 99215 ==

== ENCOUNTER → 2023-01-22 | Outpatient (CLI) | payer OTHER, SELFPAY ==
--- NOTE | 2023-01-22 | DI.MRI.S_ITS ---
PROCEDURE: MR ABDOMEN LIVER PROTOCOL INDICATIONS: Liver disease, unspecified TECHNIQUE: Coronal HASTE, axial 2D FLASH in- and [id number]; axial breath-hold T2 FSE. Dynamic axial VIBE during the administration of contrast; post-contrast coronal VIBE or 2D FLASH with fat saturation from the hepatic dome to the iliac crests. Optional diffusion weighted imaging and ADC may be performed. COMPARISON: [facility], CT, CT ABDOMEN PELVIS W CON, 12/18/2022, 14:20. FINDINGS: Image quality: Good Lower chest: No basal effusions. The lungs are not well evaluated on this study. Solid organs: Multiple T2 hyperintense lesions in the liver, with typical imaging characteristics for benign cavernous hemangiomas there is a capillary hemangioma at the liver dome, also with classic imaging characteristics. No overtly suspicious liver lesion. Gallbladder is unremarkable. No pathologic dilation of the biliary system or pancreatic duct. There is no splenomegaly. Adrenal nodules are seen bilaterally. 2.6 centimeter nodule with lipid rich contents on chemical shift imaging. 1.2 centimeter nodule is also seen on the left, also with lipid rich contents. There are renal cysts. No solid renal lesion requiring follow-up imaging. Vessels and lymph nodes: Atherosclerotic calcifications. Abdominal aortic borderline aneurysm at 3 to 3.1 centimeters. No pathologic lymph nodes by size criteria. Bowel and peritoneum: No evidence of small bowel obstruction or pathologic ascites. Body wall: Unremarkable Bones: There are degenerative changes, no acute or suspicious finding. IMPRESSION: Incidental liver lesions seen on prior CT correspond to capillary and cavernous benign hemangiomas Bilateral adrenal nodules, with lipid rich contents on chemical shift imaging, compatible with adenomas. Laboratory correlation is recommended to assess for functional status. Borderline abdominal aortic aneurysm at 3 to 3.1 centimeters. Other findings as above. Dictated by: Yonas Cheatham M.D. on 01/23/2023 at 8:13 Approved by: Yonas Cheatham M.D. on 01/23/2023 at 8:19
== END ==
LOC: MRI 19:01
PROVIDERS: PCP Internal Medicine; Referring Provider Internal Medicine; Visit Provider Internal Medicine
DX: K76.9 Liver disease, unspecified (principal); E27.9 Disorder of adrenal gland, unspecified; N28.1 Cyst of kidney, acquired
CPT/HCPCS: 74183; A9579

== ENCOUNTER → 2023-02-01 14:20 | Outpatient (CLI) | payer OTHER, SELFPAY ==
[2023-02-01 15:39] LABS: Appearance Urine UA CLEAR; Bilirubin Urine UA NEGATIVE (NEGATIVE); Color Urine UA YELLOW; Glucose Urine UA NEGATIVE (Negative); Ketones Urine UA NEGATIVE (NEGATIVE); Leukocyte Esterase Urine UA NEGATIVE (NEGATIVE); Nitrite Urine UA NEGATIVE (Negative); Occult Blood Urine UA NEGATIVE (Negative); Protein Urine UA NEGATIVE (Negative); Specific Gravity Urine UA 1.015 (1.000-1.035); Urobilinogen Urine UA 0.2 E.U./dL (0.2); pH Urine UA 6.5 (4.5-8.0)
[2023-02-01 15:54] LABS: Bacteria Urine None Seen; Mucus Urine 1+ (Negative); RBC Urine None Seen (0-5/HPF); Squamous Epithelial Cell Urine 0-1 /HPF (0-5/HPF); WBC Urine 0-1/HPF (0-5/HPF)
[2023-02-01 15:55] LABS: Culture Indicated Urine Cult Not Indicated
[2023-02-01 16:17] LABS: Prostate Specific Antigen 2.12 ng/mL (0.10-4.00)
== END ==
PROVIDERS: PCP Internal Medicine; Referring Provider Specialist; Visit Provider Specialist
DX: R30.0 Dysuria (principal); N40.1 Benign prostatic hyperplasia with lower urinary tract symptoms; N13.8 Other obstructive and reflux uropathy; Z87.440 Personal history of urinary (tract) infections
CPT/HCPCS: 36415; 81001; 84153

== ENCOUNTER → 2023-03-05 12:29 | Outpatient (CLI) | payer OTHER, SELFPAY | PROVIDERS: PCP Internal Medicine; Referring Provider Specialist; Visit Provider Specialist | DX: Z87.440 Personal history of urinary (tract) infections (principal) | CPT/HCPCS: 87077; 87086; 87186 ==

== ENCOUNTER 2023-03-31 19:43 | Emergency (ER) | payer MEDICARE, SELFPAY ==
[2023-03-31 19:46] VITALS: BP 102/57; PULSE 96; RESP 20; TEMP 37.2; O2SAT 97; BMI 28.6
--- NOTE | 2023-03-31 20:01 | DI.RAD.S_ITS ---
PROCEDURE: XR CHEST 1V INDICATIONS: suspected sepsis TECHNIQUE: One view of the chest was acquired. COMPARISON: [facility], CR, XR CHEST 1V, 11/25/2017, 18:19. FINDINGS: Surgical changes and devices: None. Lungs and pleura: Lungs are clear. No pleural effusions or pneumothorax. Mediastinum: Mediastinal contours appear normal. Heart size is normal. Bones and chest wall: No suspicious bony lesions. Overlying soft tissues appear unremarkable. IMPRESSION: No acute cardiopulmonary abnormality is seen. Dictated by: Geraldo Enriquez M.D. on 03/31/2023 at 21:15 Approved by: Geraldo Enriquez M.D. on 03/31/2023 at 21:15
[2023-03-31] MEDS: SODIUM CHLORIDE 0.9% 1,000 ML 1000 ML IV (20:20)
[2023-03-31 20:27] LABS: Appearance Urine UA SL CLOUDY; Bilirubin Urine UA NEGATIVE (NEGATIVE); Color Urine UA YELLOW; Glucose Urine UA 3+ g/dL (Negative); Ketones Urine UA 2+ (NEGATIVE); Leukocyte Esterase Urine UA TRACE (NEGATIVE); Nitrite Urine UA NEGATIVE (Negative); Occult Blood Urine UA NEGATIVE (Negative); Protein Urine UA NEGATIVE (Negative); Urobilinogen Urine UA 0.2 E.U./dL (0.2); pH Urine UA 6.5 (4.5-8.0)
[2023-03-31 20:32] LABS: INR 1.1 (0.9-1.3)
[2023-03-31 20:35] LABS: PTT Partial Thromboplastin Tim 38 SECONDS (25.1-36.5)
[2023-03-31 20:36] LABS: Add Manual Diff / Slide Review NO; Basophils Absolute Auto 0 /uL (0-100); Basophils Percent Auto 0.5 % (0-2); Eosinophils Absolute Auto 100 /uL (0-450); Eosinophils Percent Auto 1.3 % (2-4); Hematocrit 37.7 % (41-53); Hemoglobin 12.9 g/dL (13.5-17.5); Lactate (Lactic Acid) 1.1 mmol/L (0.7-2.1); Lymphocytes Absolute Auto 100 /uL (1100-4500); Lymphocytes Percent Auto 2.3 % (25-40); Mean Corpuscular HGB Conc 34.2 % (30-36); Mean Corpuscular Volume 84.7 fL (80-100); Monocytes Absolute Auto 300 /uL (0-900); Neutrophils Absolute Auto 5800 /uL (1500-7000); Neutrophils Percent Auto 90.9 % (50-75); Platelet Count 180 X10^3/uL (150-400); Red Blood Cell Count 4.45 X10^6/uL (4.5-5.9); Red Cell Distribution Width 13.2 % (11.6-14.8); White Blood Cell Count 6.4 X10^3/uL (4.5-11.0)
[2023-03-31 20:37] LABS: Alanine Aminotransferase 42 IU/L (<50); Albumin 4.5 g/dL (3.5-5.0); Albumin Globulin Ratio 1.5 (1.0-2.8); Alkaline Phosphatase 81 U/L (38-126); Aspartate Aminotransferase 33 IU/L (17-59); BUN Creatinine Ratio 20.5 (6-22); Bilirubin Total 0.8 mg/dL (0.2-1.3); Blood Urea Nitrogen 16 mg/dL (9-20); Calcium 9.6 mg/dL (8.4-10.2); Carbon Dioxide 21 mmol/L (22-32); Chloride 99 mmol/L (98-107); Estimated Glomerular Filt Rate > 60 mL/min (>60); Globulin 3.1 g/dL (1.7-4.1); Glucose 135 mg/dL (80-110); HEMOLYSIS < 15 (0-50); Lipase 56 U/L (23-300); Sodium 133 mmol/L (137-145); Total Protein 7.6 g/dL (6.3-8.2)
[2023-03-31 20:43] LABS: Bacteria Urine Occasional (0-1); Culture Indicated Urine Specimen Cultured; RBC Urine 0-1/HPF (0-5/HPF); Squamous Epithelial Cell Urine None Seen (0-5/HPF); Urine Volume 10mL (spun); WBC Urine 10-30/HPF (0-5/HPF)
[2023-03-31 20:51] VITALS: PULSE 77; O2SAT 97
[2023-03-31 20:54] LABS: Procalcitonin 0.46 ng/mL (<0.5)
[2023-03-31 21:00] VITALS: BP 94/61; PULSE 76; RESP 17; O2SAT 97
[2023-03-31 21:19] LABS: Adenovirus Not Detected (Not Detect); B. parapertussis Not Detected (Not Detecte); Bordetella pertussis Not Detected (Not Detect); Chlamydophila pneumoniae Not Detected (Not Detect); Coronavirus 229E Not Detected (Not Detect); Coronavirus HKU1 Not Detected (Not Detect); Coronavirus NL 63 Not Detected (Not Detect); Coronavirus OC43 Not Detected (Not Detect); Human Metapneumovirus Not Detected (Not Detect); Human Rhinovirus/Enterovirus Not Detected (Not Detect); Influenza A Not Detected (Not Detect); Influenza B Not Detected (Not Detect); Mycoplasma pneumoniae Not Detected (Not Detect); Parainfluenza Virus 1 Not Detected (Not Detect); Parainfluenza Virus 2 Not Detected (Not Detect); Parainfluenza Virus 3 Not Detected (Not Detect); Parainfluenza Virus 4 Not Detected (Not Detect); Respiratory Syncytial Virus Not Detected (Not Detect); SARS- CoV-2 Not Detected (Not Detecte)
--- NOTE | 2023-03-31 21:23 | ED.GENADULT ---
HPI - General Adult General Chief complaint: Urogenital-Male Stated complaint: UTI, cough, low energy Time Seen by Provider: 03/31/23 20:36 Source: patient and family Mode of arrival: Ambulatory History of Present Illness HPI narrative: 62-year-old male with history of bladder cancer, nephrolithiasis, diabetes, coronary artery disease with prior cardiac stents, BPH with prior urinary obstruction/LUTS with recurrent UTIs. Patient presents with complaint fever to 101.5 earlier today patient did take a 1000 mg of Tylenol prior to arrival, describes some headache decreased energy cough cold symptoms with some hoarseness last night. He has had a cough he describes as productive but has never looked at the sputum. He states he just swallows it. Patient states he had a viral upper respiratory infection had RSV a couple weeks ago that got better this has been a new change with a new cough and cold symptoms. Denies any chest pain, no shortness of breath. States he is quite decreased in his energy level, no nausea or vomiting, no passing out. He states he has had discomfort in his bladder with dysuria, frequency and a sense of urgency and incomplete emptying. No testicular pain. He has had several UTIs over the past several months and has had 2 rounds of Cipro and most recently around of nitrofurantoin after having his urine checked several days ago. He is on his 3rd dose of nitrofurantoin and states it has not improving. No rash or skin changes. No diarrhea constipation. Patient states bowel movements are not as regular but occur without diarrhea or constipation no black or blood. Patient states past medical history is had 11 prior cardiac stents on aspirin and Plavix, hypertension, dyslipidemia diabetes. Has had scraping of his bladder for bladder cancer in the past, his cardiac stents and hernia repair. He does get cystoscopy annually with Urology is due to have his next 1 in May. Allergic to penicillin and sulfa. Quit using tobacco in November 2022 does vape occasionally. Denies regular alcohol or recreational drugs. Follows with [facility] is his primary care who is started him in his most recent antibiotic. Follows with Dr. Palmer for Urology. Related Data Home Medications Medication Instructions Recorded Confirmed nitroglycerin 0.4 mg sublingual PRN Pain (Scale Score 4-6) ##0 03/25/17 02/07/23 tablet (Nitrostat) Glucose Test Strips #1 ea 10/20/19 02/07/23 clopidogrel 75 mg tablet (Plavix) 75 mg PO Q DAY ##0 10/20/19 02/07/23 metformin 500 mg tablet,extended 500 mg PO BID #0 tabs 10/20/19 02/07/23 release 24 hr (Glucophage XR) acetaminophen 500 mg tablet 500 mg PO QID PRN Pain (Scale 11/19/19 02/07/23 (Tylenol Extra Strength) Score 1-3) aspirin 81 mg chewable tablet 81 mg PO DAILY 11/19/19 02/07/23 lisinopril 20 mg tablet 40 mg PO BID #0 tabs 01/20/20 02/07/23 empagliflozin 25 mg tablet 25 mg PO DAILY 03/31/23 03/31/23 (Jardiance) Previous Rx's Medication Instructions Recorded carvedilol 12.5 mg tablet 12.5 mg PO BID #180 tabs 11/07/19 atorvastatin 80 mg tablet (Lipitor) 80 mg PO Q DAY #90 tabs 11/22/20 tamsulosin 0.4 mg capsule 0.4 mg .Route .COMPLEX #90 caps 06/16/21 levofloxacin 750 mg tablet 750 mg PO DAILY 10 days #10 tabs 03/31/23 Allergies Allergy/AdvReac Type Severity Reaction Status Date / Time penicillin G [PENICILLIN G] Allergy Unknown Hives Verified 03/31/23 22:25 Sulfa (Sulfonamide Allergy Unknown Hives Verified 03/31/23 22:25 Antibiotics) [SULFA (SULFONAMIDE ANTIBIOTICS)] Review of Systems Review of Systems ROS Unobtainable: All systems reviewed & are unremarkable except as noted in HPI and below Patient History Medical History Incomplete bladder emptying History of UTI CAD S/P percutaneous coronary angioplasty (03/26/18) Non-ST elevation LA (NSTEMI) (11/27/17) Myocardial infarction (~2006) Urinary retention Neuropathy Sciatic nerve disease (~2016) Shoulder pain (~2007) Foot pain (~2006) Carpal tunnel syndrome (~2002) Ankle pain (~1977) H/O adenomatous polyp of colon Essential hypertension Mixed hyperlipidemia Type 2 diabetes mellitus (~2009) BPH w urinary obs/LUTS History of primary bladder cancer (~2006) Coronary heart disease (~2006) Low back pain (~1982) Surgical History Bladder cancer (~2006) H/O hernia repair (~2003) H/O umbilical hernia repair Hx of heart artery stent Family History Brother Crohn disease Father History of heart disease Hyperlipidemia Hypertension Stroke Family/Other No problems noted. Social History household members: spouse Smoking Status: Current every day smoker alcohol intake: former substance use type: marijuana Type(s) of exercise: walking Smoking Status: Current every day smoker alcohol intake frequency: 0-2 drinks per day Substance Use Type: marijuana Exam Narrative Exam Narrative: GENERAL: Alert and oriented x three, male in mild distress. HEENT: Head normocephalic, atraumatic, EOMI, no nasal congestion, pupils reactive, face symmetric, moist mucous membranes NECK: Supple, full range of motion, no meningeal signs. CARDIOVASCULAR: Regular rate and rhythm without murmurs, rubs or gallops. No JVD. No edema bilateral lower extremities. RESPIRATORY: Breath sounds equal bilaterally, no wheezes rales or rhonchi. No tachypnea or accessory muscle use. ABDOMEN: Soft, nontender. Normoactive bowel sounds all 4 quadrants. No guarding or rebound, rigidity, no mass : No CVA tenderness bilaterally EXTREMITIES: Normal range of motion, no clubbing or edema. Neurovascularly intact. Normal gait. NEUROLOGICAL: Cranial nerves II through XII grossly intact. Moving all extremities SKIN: Warm, dry, no petechiae, no rashes or lesions. Initial Vital Signs Initial Vital Signs: Vital Signs Temperature 98.9 F 03/31/23 19:46 Pulse Rate 96 H 03/31/23 19:46 Respiratory Rate 20 03/31/23 19:46 Blood Pressure 102/57 L 03/31/23 19:46 Pulse Oximetry 97 03/31/23 19:46 Oxygen Delivery Method Room Air 03/31/23 19:46 Course Orders Ordered: ED Orders 03/31/23 20:01 XR chest 1V Stat EKG-12 Lead Stat RT Consult Eval and Treat NOW 03/31/23 20:10 Complete Blood Count AUTO DIFF Stat Comprehensive Metabolic Panel Stat Lactate (Lactic Acid) Stat Lipase Stat PTT Partial Thromboplastin Jose Juan Stat Procalcitonin Stat Prothrombin Time INR Stat 03/31/23 20:19 Urinalysis and Microscopic Stat Urine Culture Stat 03/31/23 20:25 Blood Culture Stat Respiratory Panel (Film Array) Stat Discontinued Medications Sodium Chloride (Normal Saline 0.9%) 1,000 mls @ 1,000 mls/hr IV BOLUS ONE Stop: 03/31/23 20:59 Last Admin: 03/31/23 20:20 Dose: 1,000 mls/hr Documented By: ANNA Levofloxacin (Levofloxacin 250 Mg Tablet) 750 mg PO NOW ONE Stop: 03/31/23 22:00 Last Admin: 03/31/23 22:11 Dose: 750 mg Documented By: ANNA Ondansetron HCl (Ondansetron 4 Mg/2 Ml Inj) 4 mg IV NOW PRN PRN Reason: Nausea And Vomiting Ondansetron HCl (Ondansetron 4 Mg Odt) 4 mg SL NOW PRN PRN Reason: Nausea And Vomiting Vital Signs Vital signs: Vital Signs - 8 hr 03/31/23 20:51 03/31/23 21:00 03/31/23 21:00 Temperature Pulse Rate 77 76 Respiratory Rate 17 Blood Pressure 94/61 Pulse Oximetry 97 97 Oxygen Delivery Method Room Air Room Air 03/31/23 21:30 03/31/23 21:30 03/31/23 22:00 Temperature Pulse Rate 75 Respiratory Rate 19 Blood Pressure 120/58 L 108/59 L Pulse Oximetry 96 Oxygen Delivery Method Room Air 03/31/23 22:00 03/31/23 22:25 Temperature 99.1 F Pulse Rate 75 Respiratory Rate 20 Blood Pressure Pulse Oximetry 96 Oxygen Delivery Method Room Air Medical Decision Making Lab Data 03/31/23 20:10 03/31/23 20:10 Labs: Lab Results 03/31/23 03/31/23 03/31/23 Range/Units 20:10 20:19 20:25 WBC 6.4 (4.5-11.0) X10^3/uL RBC 4.45 L (4.5-5.9) X10^6/uL Hgb 12.9 L (13.5-17.5) g/dL Hct 37.7 L (41-53) % MCV 84.7 (80-100) fL MCH 29.0 (26-34) PG MCHC 34.2 (30-36) % RDW 13.2 (11.6-14.8) % Plt Count 180 (150-400) X10^3/uL Neut % (Auto) 90.9 H (50-75) % Lymph % (Auto) 2.3 L (25-40) % [place] % (Auto) 5.0 (3-14) % Eos % (Auto) 1.3 L (2-4) % Baso % (Auto) 0.5 (0-2) % Neut # (Auto) 5800 (3767-4553) /uL Lymph # (Auto) 100 L (5184-3650) /uL [place] # (Auto) 300 (0-900) /uL Eos # (Auto) 100 (0-450) /uL Baso # (Auto) 0 (0-100) /uL PT 13.0 H (9.4-12.5) SECONDS INR 1.1 (0.9-1.3) APTT 38 H (25.1-36.5) SECONDS Sodium 133 L (137-145) mmol/L Potassium 4.0 (3.4-5.1) mmol/L Chloride 99 (98-107) mmol/L Carbon Dioxide 21 L (22-32) mmol/L BUN 16 (9-20) mg/dL Creatinine 0.78 (0.66-1.25) mg/dL Estimated GFR > 60 (>60) mL/min BUN/Creatinine Ratio 20.5 (6-22) Glucose 135 H (80-110) mg/dL Lactate 1.1 (0.7-2.1) mmol/L Calcium 9.6 (8.4-10.2) mg/dL Total Bilirubin 0.8 (0.2-1.3) mg/dL AST 33 (17-59) IU/L ALT 42 (<50) IU/L Alkaline Phosphatase 81 (38-126) U/L Total Protein 7.6 (6.3-8.2) g/dL Albumin 4.5 (3.5-5.0) g/dL Globulin 3.1 (1.7-4.1) g/dL Albumin/Globulin Ratio 1.5 (1.0-2.8) Lipase 56 (23-300) U/L Procalcitonin 0.46 (<0.5) ng/mL Urine Color Yellow Urine Appearance Sl cloudy Urine pH 6.5 (4.5-8.0) Ur Specific [place] 1.010 (1.000-1.035) Urine Protein Negative (Negative) Urine Glucose (UA) 3+ H (Negative) g/dL Urine Ketones 2+ H (NEGATIVE) Urine Occult Blood Negative (Negative) Urine Nitrate Negative (Negative) Urine Bilirubin Negative (NEGATIVE) Urine Urobilinogen 0.2 (0.2) E.U./dL Ur Leukocyte Esterase Trace H (NEGATIVE) Urine RBC 0-1/hpf (0-5/HPF) Urine WBC 10-30/hpf H (0-5/HPF) Ur Squamous Epith Cells None seen (0-5/HPF) Urine Bacteria Occasional (0-1) (None) Ur Culture Indicated? Specimen cultured Vol Urine Centrifuged 10ml (spun) Chlamy pneumoniae PCR Not detected (Not Detect) Adenovirus (PCR) Not detected (Not Detect) B.parapertussis DNA PCR Not detected (Not Detecte) Coronavirus OC43 (PCR) Not detected (Not Detect) Coronavirus HKU1 (PCR) Not detected (Not Detect) Coronavirus 229E (PCR) Not detected (Not Detect) SARS-CoV-2 (PCR) Not detected (Not Detecte) Coronavirus NL63 (PCR) Not detected (Not Detect) Human Metapneumovir PCR Not detected (Not Detect) Influenza Type A (PCR) Not detected (Not Detect) Influenza Type B (PCR) Not detected (Not Detect) M. pneumoniae (PCR) Not detected (Not Detect) Parainfluenza 1 (PCR) Not detected (Not Detect) Parainfluenza 2 (PCR) Not detected (Not Detect) Parainfluenza 3 (PCR) Not detected (Not Detect) Parainfluenza 4 (PCR) Not detected (Not Detect) RSV (PCR) Not detected (Not Detect) Entero/Rhino (PCR) Not detected (Not Detect) Imaging Data Chest x-ray: Radiologist's Impression: [address] [address] XRay Report Signed Patient: Justen Bullock MR#: [id number] : 1960 Acct:[id number] Age/Sex: 62 / M Date of Service: 03/31/23 Loc: ED Accession Number: [id number] Procedure: XR chest 1V Ordering Provider: Sho Mccloud D.O. PROCEDURE: XR CHEST 1V INDICATIONS: suspected sepsis TECHNIQUE: One view of the chest was acquired. COMPARISON: [facility], , XR CHEST 1V, 11/25/2017, 18:19. FINDINGS: Surgical changes and devices: None. Lungs and pleura: Lungs are clear. No pleural effusions or pneumothorax. Mediastinum: Mediastinal contours appear normal. Heart size is normal. Bones and chest wall: No suspicious bony lesions. Overlying soft tissues appear unremarkable. IMPRESSION: No acute cardiopulmonary abnormality is seen. Dictated by: Geraldo Enriquez M.D. on 03/31/2023 at 21:15 Approved by: Geraldo Enriquez M.D. on 03/31/2023 at 21:15 ECG Data Attestation: I personally reviewed and interpreted this ECG as follows: Interpretation: Sinus rhythm rate of 90 IN 172 QRS of 92 QTC of 447. No acute ST elevation or depression Q-waves in 2 3 AVF. Patient has prior EKG from 11/25/2017 what it is that time had clear ST elevation NSTEMI with depression in lateral leads. MDM Narrative Medical decision making narrative: 62-year-old male with history of recurrent UTIs since the past several months. Patient follows regularly with Urology for history of bladder cancer with scraping, he has had 2 rounds of Cipro and around of nitrofurantoin in his on his 3rd dose. He states symptoms have been persistent and he is developed fever. He has had some mild cough cold congestion symptoms as well. Patient labs show normal CBC although 90% neutrophils, INR 1.1 normal renal function, electrolytes glucose of 135, lactate of 1.1 LFTs are negative protocol is 0.46, respiratory panel was negative although patient is fairly early and symptoms. And chest x-ray is negative as well. Patient's UA shows glucose, ketones trace leukocyte esterase and 10-30 WBCs. He did have urine culture sent and has blood cultures pending. I do not have patient's recent urine cultures from outside facility but had E faecalis which showed sensitivity to Cipro, Levaquin nitrofurantoin on past visits here. Discussed with patient as he is developed fevers even with 3 doses of nitrofurantoin which switch to Levaquin. He has some upper respiratory symptoms although this is likely viral could be the source of his fever this will give alternative coverage. Discussed with patient he is agreeable we will have him hold his nitrofurantoin, reach out to [facility] as well as urologist. Patient states he has follow up on the 12 of May asked to call for sooner follow-up. Discharge Plan Departure Patient Disposition: Home Clinical Impression: Acute UTI Activity Restrictions/Additional Instructions: Follow-up with your urologist, call Sunday to set up sooner follow-up then your May 12 appointment. Please stop the nitrofurantoin. Start the Levaquin take once daily until completed. Prescription sent to [facility] in [place]. This is based on your prior urine cultures available here at [facility] this antibiotic also has some coverage for pulmonary infections as well although your chest xray is negative. today. Continue your other home medications as prescribed. Please return for persistent fevers, new or worsening chest pain, shortness of breath, lightheadedness or passing out, vomiting, increasing painful or difficulty with urination, black or bloody stools, new abdominal back or flank pain or other new or concerning changes. Prescriptions: New levofloxacin 750 mg tablet 750 mg PO DAILY 10 Days Qty: 10 0RF No Action nitroglycerin [Nitrostat] 0.4 MG tablet, sublingual PRN (Reason: Pain (Scale Score 4-6)) Qty: 0 carvedilol 12.5 mg tablet 12.5 mg PO BID Qty: 180 3RF Rx Instructions: must administer with a meal/food atorvastatin [Lipitor] 80 mg tablet 80 mg PO Q DAY Qty: 90 0RF Rx Instructions: PT DUE FOR APPT W/PCP PRIOR TO END OF RX. PLEASE CALL TO SCHEDULE. THANKS 11/22/20 (DME) Glucose Test Strips Qty: 1 Rx Instructions: Tests 4x a day/ metformin [Glucophage XR] 500 mg tablet extended release 24 hr 500 mg PO BID Qty: 0 clopidogrel [Plavix] 75 mg tablet 75 mg PO Q DAY Qty: 0 lisinopril 20 mg tablet 40 mg PO BID Qty: 0 acetaminophen [Tylenol Extra Strength] 500 mg Tablet 500 mg PO QID PRN (Reason: Pain (Scale Score 1-3)) aspirin 81 mg Tablet,Chewable 81 mg PO DAILY Jardiance 25 mg tablet 25 mg PO DAILY tamsulosin 0.4 mg capsule 0.4 mg .ROUTE .COMPLEX Qty: 90 3RF Rx Instructions: 0.4 mg; Referrals: Julita Fan MD [Primary Care Provider] - Stand Alone Forms: Patient Portal/API
[2023-03-31 21:30] VITALS: BP 120/58; PULSE 75; RESP 19; O2SAT 96
[2023-03-31 22:00] VITALS: BP 108/59; PULSE 75; RESP 20; O2SAT 96
[2023-03-31] MEDS: levoFLOXacin 250 MG TABLET 750 MG PO (22:11)
[2023-03-31 22:25] VITALS: TEMP 37.3
== END 2023-03-31 22:25 | disposition home or self-care (01) ==
PROVIDERS: Emergency Provider Emergency Medicine; PCP Internal Medicine
DX: N39.0 Urinary tract infection, site not specified (principal); R50.9 Fever, unspecified; Z79.01 Long term (current) use of anticoagulants; Z79.899 Other long term (current) drug therapy; Z20.822 Contact with and (suspected) exposure to COVID-19
CPT/HCPCS: 36415; 71045; 80053; 81001; 83605; 83690; 84145; 85025; 85610; 85730; 87040; 87086; 87633; 93005; 99284

== ENCOUNTER 2023-04-20 15:53 | Emergency (ER) | payer OTHER, SELFPAY ==
[2023-04-20 15:57] VITALS: BP 129/73; PULSE 106; RESP 18; TEMP 36.4; O2SAT 98; BMI 27.6
--- NOTE | 2023-04-20 16:07 | ED.MALEGU ---
HPI - Male Genitourinary <Chadwick Kern PA-C - Last Filed: 04/20/23 17:56> General Chief complaint: Urogenital-Male Stated complaint: UTI Time Seen by Provider: 04/20/23 16:04 Source: patient Mode of arrival: Ambulatory History of Present Illness HPI Narrative: This is a 62-year-old male presents to the emergency department due to dysuria and urinary frequency onset last night. He was a very frequent history of UTIs in his being seen by a urologist. Also reports some lower abdominal pain as well as some lower back pain. Denies any fevers, nausea, vomiting, or any other concerning signs or symptoms. Related Data Home Medications Medication Instructions Recorded Confirmed nitroglycerin 0.4 mg sublingual PRN Pain (Scale Score 4-6) ##0 03/25/17 04/12/23 tablet (Nitrostat) Glucose Test Strips #1 ea 10/20/19 04/12/23 clopidogrel 75 mg tablet (Plavix) 75 mg PO Q DAY ##0 10/20/19 04/12/23 metformin 500 mg tablet,extended 500 mg PO BID #0 tabs 10/20/19 04/12/23 release 24 hr (Glucophage XR) acetaminophen 500 mg tablet 500 mg PO QID PRN Pain (Scale 11/19/19 04/12/23 (Tylenol Extra Strength) Score 1-3) aspirin 81 mg chewable tablet 81 mg PO DAILY 11/19/19 04/12/23 lisinopril 20 mg tablet 40 mg PO BID #0 tabs 01/20/20 04/12/23 empagliflozin 25 mg tablet 25 mg PO DAILY 03/31/23 04/12/23 (Jardiance) Previous Rx's Medication Instructions Recorded carvedilol 12.5 mg tablet 12.5 mg PO BID #180 tabs 11/07/19 atorvastatin 80 mg tablet (Lipitor) 80 mg PO Q DAY #90 tabs 11/22/20 tamsulosin 0.4 mg capsule 0.4 mg .Route .COMPLEX #90 caps 06/16/21 ciprofloxacin HCl 500 mg tablet 250 mg (1/2 x 500 mg) PO BID #14 04/20/23 tabs Allergies Allergy/AdvReac Type Severity Reaction Status Date / Time penicillin G [PENICILLIN G] Allergy Unknown Hives Verified 04/20/23 16:02 Sulfa (Sulfonamide Allergy Unknown Hives Verified 04/20/23 16:02 Antibiotics) [SULFA (SULFONAMIDE ANTIBIOTICS)] Review of Systems <Chadwick Kern PA-C - Last Filed: 04/20/23 17:56> Review of Systems Narrative: GENERAL: Denies chills, fatigue, malaise, fever, sweats. HEENT: Denies sinus pain, ear pain, sore throat, difficulty swallowing, dizziness. RESPIRATORY: Denies dyspnea, cough, wheezing, hemoptysis, sputum. CARDIOVASCULAR: Denies chest pain, palpitations, orthopnea, edema, GASTROINTESTINAL: Reports lower abdominal pain Denies nausea, vomiting, diarrhea, constipation, melena. : Reports dysuria and urinary frequency MUSCULOSKELETAL: denies weakness, joint pain, or bony pain. Reports back pain SKIN: Denies rash, skin lesions, or other NEUROLOGIC: Denies weakness, headache, numbness, change in speech, confusion, seizures, incoordination. PSYCHIATRIC: No concerning psychosocial issues. 12 point review of systems is negative except for those stated above Patient History <Chadwick Kern PA-C - Last Filed: 04/20/23 17:56> Medical History (Updated 04/20/23 @ 17:55 by Chadwick Kern PA-C) Recurrent UTI (urinary tract infection) Incomplete bladder emptying History of UTI CAD S/P percutaneous coronary angioplasty (03/26/18) Non-ST elevation [place] (NSTEMI) (11/27/17) Myocardial infarction (~2006) Urinary retention Neuropathy Sciatic nerve disease (~2016) Shoulder pain (~2007) Foot pain (~2006) Carpal tunnel syndrome (~2002) Ankle pain (~1977) H/O adenomatous polyp of colon Essential hypertension Mixed hyperlipidemia Type 2 diabetes mellitus (~2009) BPH w urinary obs/LUTS History of primary bladder cancer (~2006) Coronary heart disease (~2006) Low back pain (~1982) Surgical History Bladder cancer (~2006) H/O hernia repair (~2003) H/O umbilical hernia repair Hx of heart artery stent Family History Brother Crohn disease Father History of heart disease Hyperlipidemia Hypertension Stroke Family/Other No problems noted. Social History household members: spouse Smoking Status: Former smoker alcohol intake: former substance use type: marijuana Type(s) of exercise: walking Smoking Status: Former smoker alcohol intake frequency: a few times a week Substance Use Type: does not use Exam <AWILDA Pierre Last Filed: 04/20/23 17:56> Narrative Exam Narrative: GENERAL: Well-developed patient, in mild distress. HEAD: Atraumatic. Normocephalic. EYES: Pupils equal round and reactive. Extraocular motions intact. No scleral icterus. No injection or drainage. ENT: Nose without bleeding, purulent drainage. Throat without erythema, tonsillar hypertrophy or exudate. Airway patent. NECK: Trachea midline. Non tender EXTREMITIES: No edema or joint tenderness. NEURO: AOx3. SKIN: No rash or erythema of visible areas Back: No CVA tenderness Initial Vital Signs Initial Vital Signs: Vital Signs Temperature 97.6 F 04/20/23 15:57 Pulse Rate 106 H 04/20/23 15:57 Respiratory Rate 18 04/20/23 15:57 Blood Pressure 129/73 04/20/23 15:57 Pulse Oximetry 98 04/20/23 15:57 Oxygen Delivery Method Room Air 04/20/23 15:57 <Macy Antoine DO - Last Filed: 04/21/23 07:09> Initial Vital Signs Initial Vital Signs: Vital Signs Temperature 97.6 F 04/20/23 15:57 Pulse Rate 106 H 04/20/23 15:57 Respiratory Rate 18 04/20/23 15:57 Blood Pressure 129/73 04/20/23 15:57 Pulse Oximetry 98 04/20/23 15:57 Oxygen Delivery Method Room Air 04/20/23 15:57 Course <AWILDA Pierre Last Filed: 04/20/23 17:56> Orders Ordered: Discontinued Medications Sodium Chloride (Normal Saline 0.9%) 1,000 mls @ 1,000 mls/hr IV BOLUS ONE Stop: 04/20/23 17:48 Last Infusion: 04/20/23 18:12 Dose: Infused Documented By: Admin: 04/20/23 17:10 Dose: 1,000 mls/hr Documented By: MAURICIO Ertapenem 1 gm/ Sodium (Chloride) 100 mls @ 200 mls/hr IV NOW ONE Stop: 04/20/23 17:50 Last Infusion: 04/20/23 18:50 Dose: Infused Documented By: Admin: 04/20/23 18:07 Dose: 200 mls/hr Documented By: MAURICIO Ondansetron HCl (Ondansetron 4 Mg/2 Ml Inj) 4 mg IV NOW PRN PRN Reason: Nausea And Vomiting Ondansetron HCl (Ondansetron 4 Mg Odt) 4 mg SL NOW PRN PRN Reason: Nausea And Vomiting Vital Signs Vital signs: Vital Signs - 8 hr 04/20/23 15:57 04/20/23 17:48 Temperature 97.6 F 98.3 F Pulse Rate 106 H 88 Respiratory Rate 18 18 Blood Pressure 129/73 106/59 L Pulse Oximetry 98 98 Oxygen Delivery Method Room Air Room Air <Macy Antoine DO - Last Filed: 04/21/23 07:09> Orders Ordered: Discontinued Medications Sodium Chloride (Normal Saline 0.9%) 1,000 mls @ 1,000 mls/hr IV BOLUS ONE Stop: 04/20/23 17:48 Last Infusion: 04/20/23 18:12 Dose: Infused Documented By: Admin: 04/20/23 17:10 Dose: 1,000 mls/hr Documented By: MAURICIO Ertapenem 1 gm/ Sodium (Chloride) 100 mls @ 200 mls/hr IV NOW ONE Stop: 04/20/23 17:50 Last Infusion: 04/20/23 18:50 Dose: Infused Documented By: Admin: 04/20/23 18:07 Dose: 200 mls/hr Documented By: MAURICIO Ondansetron HCl (Ondansetron 4 Mg/2 Ml Inj) 4 mg IV NOW PRN PRN Reason: Nausea And Vomiting Ondansetron HCl (Ondansetron 4 Mg Odt) 4 mg SL NOW PRN PRN Reason: Nausea And Vomiting Vital Signs Vital signs: Vital Signs - 8 hr 04/20/23 15:57 04/20/23 17:48 Temperature 97.6 F 98.3 F Pulse Rate 106 H 88 Respiratory Rate 18 18 Blood Pressure 129/73 106/59 L Pulse Oximetry 98 98 Oxygen Delivery Method Room Air Room Air MDM - Male Genitourinary <Chadwick Kern PA-C - Last Filed: 04/20/23 17:56> Lab Data 04/20/23 17:00 04/20/23 17:00 Labs: Lab Results 04/20/23 04/20/23 Range/Units 16:12 17:00 WBC 3.5 L (4.5-11.0) X10^3/uL RBC 4.58 (4.5-5.9) X10^6/uL Hgb 12.8 L (13.5-17.5) g/dL Hct 37.9 L (41-53) % MCV 82.8 (80-100) fL MCH 28.0 (26-34) PG MCHC 33.8 (30-36) % RDW 13.1 (11.6-14.8) % Plt Count 154 (150-400) X10^3/uL Neut % (Auto) 94.6 H (50-75) % Lymph % (Auto) 2.4 L (25-40) % Bullock % (Auto) 1.6 L (3-14) % Eos % (Auto) 1.2 L (2-4) % Baso % (Auto) 0.2 (0-2) % Neut # (Auto) 3300 (3705-9489) /uL Lymph # (Auto) 100 L (4093-6030) /uL Bullock # (Auto) 100 (0-900) /uL Eos # (Auto) 0 (0-450) /uL Baso # (Auto) 0 (0-100) /uL Sodium 136 L (137-145) mmol/L Potassium 3.7 (3.4-5.1) mmol/L Chloride 105 (98-107) mmol/L Carbon Dioxide 22 (22-32) mmol/L BUN 20 (9-20) mg/dL Creatinine 0.67 (0.66-1.25) mg/dL Estimated GFR > 60 (>60) mL/min BUN/Creatinine Ratio 29.9 H (6-22) Glucose 125 H (80-110) mg/dL Calcium 9.3 (8.4-10.2) mg/dL Total Bilirubin 0.7 (0.2-1.3) mg/dL AST 28 (17-59) IU/L ALT 34 (<50) IU/L Alkaline Phosphatase 79 (38-126) U/L Total Protein 7.4 (6.3-8.2) g/dL Albumin 4.4 (3.5-5.0) g/dL Globulin 3.0 (1.7-4.1) g/dL Albumin/Globulin Ratio 1.5 (1.0-2.8) Urine RBC 0-1/hpf (0-5/HPF) Urine WBC 5-10/hpf H (0-5/HPF) Ur Squamous Epith Cells None seen (0-5/HPF) Urine Bacteria Occasional (0-1) (None) Ur Culture Indicated? Specimen cultured Vol Urine Centrifuged 10ml (spun) Urine Dip Bedside Urine Glucose 1000 mg/dl Bedside Urine Bilirubin - Negative Bedside Urine Ketone +/- 5 Urine Specific [place] 1.015 Bedside Urine Occult Blood - Negative Bedside Urine pH 6.0 Bedside Urine Protein - Negative Bedside Urine Urobilinogen - Negative Bedside Urine Nitrite - Negative Bedside Urine Leukocytes + 70 Esterase MDM Narrative Medical decision making narrative: ED course: This is a 62-year-old male presents emergency department due to UTI symptoms confirmed non UA. CBC and CMP unremarkable. Patient reports some lower abdominal pain as well as some back pain concerns for complicated UTI. Also concerns for multi-drug resistance due to recent levofloxacin use. Based on up-to-date we will treat with the initial dose of ertapenem 1 g IV and follow up with ciprofloxacin 500 mg twice daily for 7 days. Previous cultures have shown sensitivities to ciprofloxacin in the past. CC: Dysuria Complicating co-morbidities: As below Data collected from: Previous notes Medical records reviewed: Patient was last seen a month ago due to acute UTI. History of bladder cancer, nephrolithiasis, diabetes, coronary artery disease, prior cardiac stents, BPH with a prior urinary obstruction/LUTS, recurrent UTIs. Has had several UTIs over the past several months with multiple courses of Cipro and nitrofurantoin. UTI symptoms not improve improving with the nitrofurantoin. Past medical history of 11 prior cardiac stents on aspirin and Plavix, hypertension, dyslipidemia. Has not established urologist. History of penicillin and sulfa allergies. Sees Dr. Palmer of Urology. Normal white count on CBC. Patient was prescribed Levaquin. Differential considered, but not limited to: Simple cystitis, complicated UTI, pyelonephritis Exam documented above, pertinent findings include: No CVA tenderness to palpation Lab Test results independently reviewed as above. Pertinent findings: CBC and CMP unremarkable UA positive for leuks. Imaging studies independently reviewed: None obtained Scores Used: None MIPS Elements: None Consultations: None Treatments: IV antibiotics here as well as oral antibiotics prescribed Re-evaluations: None Discussion: Discussed plan with the patient was comfortable with the plan Diagnosis: Complicated UTI Disposition: see below, along with detailed discharge instructions that have been reviewed with patient as well as indications for ED re-evaluation and additional outpatient follow up <Macy Antoine, - Last Filed: 04/21/23 07:09> Lab Data Labs: Lab Results 04/20/23 04/20/23 Range/Units 16:12 17:00 WBC 3.5 L (4.5-11.0) X10^3/uL RBC 4.58 (4.5-5.9) X10^6/uL Hgb 12.8 L (13.5-17.5) g/dL Hct 37.9 L (41-53) % MCV 82.8 (80-100) fL MCH 28.0 (26-34) PG MCHC 33.8 (30-36) % RDW 13.1 (11.6-14.8) % Plt Count 154 (150-400) X10^3/uL Neut % (Auto) 94.6 H (50-75) % Lymph % (Auto) 2.4 L (25-40) % Bullock % (Auto) 1.6 L (3-14) % Eos % (Auto) 1.2 L (2-4) % Baso % (Auto) 0.2 (0-2) % Neut # (Auto) 3300 (7385-8161) /uL Lymph # (Auto) 100 L (6655-4756) /uL Bullock # (Auto) 100 (0-900) /uL Eos # (Auto) 0 (0-450) /uL Baso # (Auto) 0 (0-100) /uL Sodium 136 L (137-145) mmol/L Potassium 3.7 (3.4-5.1) mmol/L Chloride 105 (98-107) mmol/L Carbon Dioxide 22 (22-32) mmol/L BUN 20 (9-20) mg/dL Creatinine 0.67 (0.66-1.25) mg/dL Estimated GFR > 60 (>60) mL/min BUN/Creatinine Ratio 29.9 H (6-22) Glucose 125 H (80-110) mg/dL Calcium 9.3 (8.4-10.2) mg/dL Total Bilirubin 0.7 (0.2-1.3) mg/dL AST 28 (17-59) IU/L ALT 34 (<50) IU/L Alkaline Phosphatase 79 (38-126) U/L Total Protein 7.4 (6.3-8.2) g/dL Albumin 4.4 (3.5-5.0) g/dL Globulin 3.0 (1.7-4.1) g/dL Albumin/Globulin Ratio 1.5 (1.0-2.8) Urine RBC 0-1/hpf (0-5/HPF) Urine WBC 5-10/hpf H (0-5/HPF) Ur Squamous Epith Cells None seen (0-5/HPF) Urine Bacteria Occasional (0-1) (None) Ur Culture Indicated? Specimen cultured Vol Urine Centrifuged 10ml (spun) Urine Dip Bedside Urine Glucose 1000 mg/dl Bedside Urine Bilirubin - Negative Bedside Urine Ketone +/- 5 Urine Specific [place] 1.015 Bedside Urine Occult Blood - Negative Bedside Urine pH 6.0 Bedside Urine Protein - Negative Bedside Urine Urobilinogen - Negative Bedside Urine Nitrite - Negative Bedside Urine Leukocytes + 70 Esterase Discharge Plan Departure Patient Disposition: Home Clinical Impression: Complicated urinary tract infection Activity Restrictions/Additional Instructions: Thank you for coming to the [facility] Emergency Department today. It appears that you have a UTI based on UA. Your lab work today was reassuring. Please take the oral antibiotics as prescribed. Please return to the emergency department if you develop any fevers, nausea, vomiting or any other concerning signs or symptoms. I hope you feel better soon. Please follow up with your primary care provider within a week if your symptoms continue. If you do not have a primary care provider please contact the [facility] Resource line at [phone]. They will ask some questions about your medical history and help you get set up with a provider in the community. Prescriptions: New ciprofloxacin HCl 500 mg tablet 250 mg PO BID Qty: 14 0RF No Action nitroglycerin [Nitrostat] 0.4 MG tablet, sublingual PRN (Reason: Pain (Scale Score 4-6)) Qty: 0 carvedilol 12.5 mg tablet 12.5 mg PO BID Qty: 180 3RF Rx Instructions: must administer with a meal/food atorvastatin [Lipitor] 80 mg tablet 80 mg PO Q DAY Qty: 90 0RF Rx Instructions: PT DUE FOR APPT W/PCP PRIOR TO END OF RX. PLEASE CALL TO SCHEDULE. THANKS 11/22/20 (DME) Glucose Test Strips Qty: 1 Rx Instructions: Tests 4x a day/ metformin [Glucophage XR] 500 mg tablet extended release 24 hr 500 mg PO BID Qty: 0 clopidogrel [Plavix] 75 mg tablet 75 mg PO Q DAY Qty: 0 lisinopril 20 mg tablet 40 mg PO BID Qty: 0 acetaminophen [Tylenol Extra Strength] 500 mg Tablet 500 mg PO QID PRN (Reason: Pain (Scale Score 1-3)) aspirin 81 mg Tablet,Chewable 81 mg PO DAILY Jardiance 25 mg tablet 25 mg PO DAILY tamsulosin 0.4 mg capsule 0.4 mg .ROUTE .COMPLEX Qty: 90 3RF Rx Instructions: 0.4 mg; Referrals: Julita Fan MD [Primary Care Provider] - Stand Alone Forms: Patient Portal/API ED Sign-out <Macy Antoine DO - Last Filed: 04/21/23 07:09> Cosign ED Attending Cosmiguelitoature Attestation: I was available for consultation.
[2023-04-20 16:42] LABS: Bacteria Urine Occasional (0-1); Culture Indicated Urine Specimen Cultured; RBC Urine 0-1/HPF (0-5/HPF); Squamous Epithelial Cell Urine None Seen (0-5/HPF); Urine Volume 10mL (spun); WBC Urine 5-10/HPF (0-5/HPF)
[2023-04-20 17:10] LABS: Add Manual Diff / Slide Review NO; Basophils Absolute Auto 0 /uL (0-100); Basophils Percent Auto 0.2 % (0-2); Eosinophils Absolute Auto 0 /uL (0-450); Eosinophils Percent Auto 1.2 % (2-4); Hematocrit 37.9 % (41-53); Hemoglobin 12.8 g/dL (13.5-17.5); Lymphocytes Absolute Auto 100 /uL (1100-4500); Lymphocytes Percent Auto 2.4 % (25-40); Mean Corpuscular HGB Conc 33.8 % (30-36); Mean Corpuscular Volume 82.8 fL (80-100); Monocytes Absolute Auto 100 /uL (0-900); Monocytes Percent Auto 1.6 % (3-14); Neutrophils Absolute Auto 3300 /uL (1500-7000); Neutrophils Percent Auto 94.6 % (50-75); Platelet Count 154 X10^3/uL (150-400); Red Blood Cell Count 4.58 X10^6/uL (4.5-5.9); Red Cell Distribution Width 13.1 % (11.6-14.8); White Blood Cell Count 3.5 X10^3/uL (4.5-11.0)
[2023-04-20] MEDS: SODIUM CHLORIDE 0.9% 1,000 ML 1000 ML IV (17:10)
[2023-04-20 17:26] LABS: Alanine Aminotransferase 34 IU/L (<50); Albumin 4.4 g/dL (3.5-5.0); Albumin Globulin Ratio 1.5 (1.0-2.8); Alkaline Phosphatase 79 U/L (38-126); Aspartate Aminotransferase 28 IU/L (17-59); BUN Creatinine Ratio 29.9 (6-22); Bilirubin Total 0.7 mg/dL (0.2-1.3); Blood Urea Nitrogen 20 mg/dL (9-20); Calcium 9.3 mg/dL (8.4-10.2); Carbon Dioxide 22 mmol/L (22-32); Chloride 105 mmol/L (98-107); Estimated Glomerular Filt Rate > 60 mL/min (>60); Glucose 125 mg/dL (80-110); HEMOLYSIS < 15 (0-50); Potassium 3.7 mmol/L (3.4-5.1); Sodium 136 mmol/L (137-145); Total Protein 7.4 g/dL (6.3-8.2)
[2023-04-20 17:48] VITALS: BP 106/59; PULSE 88; RESP 18; TEMP 36.8; O2SAT 98
[2023-04-20] MEDS: ERTAPENEM 1 GM in SODIUM CHLORIDE 0.9% 100 ML IV (18:07)
== END 2023-04-20 18:52 | disposition home or self-care (01) ==
PROVIDERS: Emergency Provider Physician Assistant Medical; PCP Internal Medicine
DX: N39.0 Urinary tract infection, site not specified (principal); M54.50 Low back pain, unspecified; Z79.899 Other long term (current) drug therapy
CPT/HCPCS: 36415; 80053; 81003; 81015; 85025; 87077; 87086; 87186; 96361; 96365; 99284; J1335

== ENCOUNTER 2023-04-30 06:28 | Day surgery (SDC) | payer MEDICARE, SELFPAY ==
[2023-04-30 07:07] VITALS: BMI 26.9
[2023-04-30 07:17] VITALS: BP 133/83; PULSE 67; RESP 16; TEMP 36.3; O2SAT 100
[2023-04-30] MEDS: LACTATED RINGERS 1,000 ML 21 ML IV (07:19)
--- NOTE | 2023-04-30 07:26 | SUR.OPER ---
Lithotomy on padded OR bed, head on pillow, arms secured on padded arm boards at <90 degrees abduction. Legs secured in padded yellow fins stirrups.
--- NOTE | 2023-04-30 07:43 | PM.PREOP ---
Pre-operative Note Interval Note History & Physical reviewed/Exam performed by Physician: Yes Changes to H&P: No
[2023-04-30] MEDS: CEFAZOLIN 2 GM/100 ML PREMIX 100 ML IV (08:00)
--- NOTE | 2023-04-30 08:31 | PM.OP.1 ---
Operative Date/Time/Diagnoses Date of procedure: 04/30/23 Time of procedure: 08:31 Pre-op diagnosis: 1. History of bladder cancer Post-op diagnosis: same Procedure & Clinicians Procedure: 1. Bladder tumor surveillance cystoscopy. Same procedure as scheduled: Yes Indications: 1. History of bladder cancer. 2. BPH/LUTS Surgeon: Levi Palmer Click Yes if Unassisted: Yes Anesthesia Type: General Operative Notes Findings: 1. Urethra-caliber without annular stricture or lesion. 2. External sphincter-coapted with overlying urothelium and vascularity. 3. Prostate-4.5-5 cm length with moderate lateral lobe hyperplasia and elevated median bar. There were several benign inflammatory mucosal polyps, mainly the right lateral mid prostatic urethra. There were numerous benign mucosal calcifications seen as well. 4. Bladder-2+ trabeculation. Normal ureteral orifices bilaterally. No stone, recurrent tumor, diverticula or foreign body seen. Closure Type: not applicable Specimen(s): none sent Estimated Blood Loss (mL): 0 Blood products transfused: none Procedure in detail: The patient was positioned supine administered general anesthesia. He was then repositioned in semi lithotomy in the lower abdomen, genitalia, and groin then prepped and draped in sterile fashion. A 22 [place] panendoscope was then passed no lower urinary tract with the findings as described above. Systematic and careful evaluation of the bladder was undertaken. The patient had voided prior to transfer to the operating room. There was a 600 cc residual bladder volume drained. The bladder was drained completely and the panendoscope was removed. The patient was repositioned in supine, awakened, and transferred to [facility] for transport to PACU in stable condition. Complications: none Post-operative Condition: stable Disposition: PACU Plan for aftercare: Discharge home.
[2023-04-30 08:35] VITALS: BP 120/73; PULSE 71; RESP 14; TEMP 36.6; O2SAT 95
[2023-04-30 08:40] VITALS: BP 112/57; PULSE 70; RESP 14; O2SAT 95
[2023-04-30 08:45] VITALS: BP 102/57; PULSE 67; RESP 15; O2SAT 97
[2023-04-30 08:50] VITALS: BP 105/67; PULSE 63; RESP 14; TEMP 36.8; O2SAT 98
== END 2023-04-30 09:10 | disposition home or self-care (01) ==
PROVIDERS: PCP Internal Medicine; Referring Provider Specialist; Visit Provider Specialist
PROC: 0TBB8ZZ Excision of Bladder, Via Natural or Artificial Opening Endoscopic (ICD-10-PCS; CPT 52000; principal; 2023-04-30 07:45)
DX: Z08 Encounter for follow-up examination after completed treatment for malignant neoplasm (principal); Z85.51 Personal history of malignant neoplasm of bladder; N40.1 Benign prostatic hyperplasia with lower urinary tract symptoms; N13.8 Other obstructive and reflux uropathy
CPT/HCPCS: 52000; J0690; J2250; J2704; J3010

== ENCOUNTER → 2023-05-28 15:27 | Outpatient (CLI) | payer MEDICARE, SELFPAY ==
[2023-05-30 08:22] LABS: PSA Free % 17.6 % (.); PSA, Total 2.1 ng/mL (0.0-4.0)
== END ==
PROVIDERS: PCP Internal Medicine; Referring Provider Specialist; Visit Provider Specialist
DX: R97.20 Elevated prostate specific antigen [PSA] (principal)
CPT/HCPCS: 36415; 84153; 84154

== ENCOUNTER 2023-06-11 03:26 | Emergency (ER) | payer MEDICARE, SELFPAY ==
--- NOTE | 2023-06-11 03:27 | DI.RAD.S_ITS ---
PROCEDURE: XR CHEST 1V INDICATIONS: Chest pain TECHNIQUE: One view of the chest was acquired. COMPARISON: [facility], CR, XR CHEST 1V, 03/31/2023, 20:40. [facility], CR, XR CHEST 1V, 11/25/2017, 18:19. FINDINGS: Surgical changes and devices: None. Lungs and pleura: Lungs are clear. No pleural effusions or pneumothorax. Mediastinum: Mediastinal contours appear normal. Heart size is normal. Bones and chest wall: No suspicious bony lesions. Overlying soft tissues appear unremarkable. IMPRESSION: No acute cardiopulmonary abnormality is seen. This report is concordant with the overnight preliminary interpretation. Dictated by: Deshaun Alba M.D. on 06/11/2023 at 7:51 Approved by: Deshaun Alba M.D. on 06/11/2023 at 7:52
[2023-06-11 03:30] VITALS: BP 129/70; PULSE 62; RESP 18; TEMP 36.8; O2SAT 100; BMI 26.9
[2023-06-11 03:39] LABS: Add Manual Diff / Slide Review NO; Basophils Absolute Auto 0 /uL (0-100); Basophils Percent Auto 0.5 % (0-2); Eosinophils Absolute Auto 100 /uL (0-450); Eosinophils Percent Auto 1.8 % (2-4); Hematocrit 40.3 % (41-53); Hemoglobin 13.4 g/dL (13.5-17.5); Lymphocytes Absolute Auto 1300 /uL (1100-4500); Lymphocytes Percent Auto 16.9 % (25-40); Mean Corpuscular HGB Conc 33.2 % (30-36); Mean Corpuscular Volume 81.5 fL (80-100); Monocytes Absolute Auto 500 /uL (0-900); Monocytes Percent Auto 6.4 % (3-14); Neutrophils Absolute Auto 5500 /uL (1500-7000); Neutrophils Percent Auto 74.4 % (50-75); Platelet Count 145 X10^3/uL (150-400); Red Blood Cell Count 4.95 X10^6/uL (4.5-5.9); Red Cell Distribution Width 14.7 % (11.6-14.8); White Blood Cell Count 7.4 X10^3/uL (4.5-11.0)
--- NOTE | 2023-06-11 03:46 | ED.CHESTPAIN ---
HPI - Chest Pain General Chief Complaint: Chest Pain Stated Complaint: chest pain Time Seen by Provider: 06/11/23 03:26 Source: patient and EMS Mode of arrival: EMS Limitations: no limitations History of Present Illness HPI narrative: Patient is a 62-year-old male. History of diabetes. History recurrent urinary tract infections and bladder issues and BPH. Also has a history of coronary artery disease. Has had at least 2 heart attacks in the past. States he has had 11 stents placed. His last stress test was ?years ago? his last cardiac catheterization was during his last heart attack and that was a couple years ago. He states that this evening he went to bed generally not feeling very well. He states he was very restless. Approximately 2 hours prior to arrival here in the emergency department he had discomfort in his chest. He did take an aspirin. He took 2 of his own nitro which did not seem to help any of his symptoms. He received 1 nitro by EMS and he thinks that brought his pain down from a 7/10 to a 2/10 states this feels different than his prior heart attacks where he was diaphoretic and had tingling down his left arm. No fevers. No nausea or vomiting. No shortness of breath. Related Data Home Medications Medication Instructions Recorded Confirmed nitroglycerin 0.4 mg sublingual 0.4 mg sublingual Q5MIN PRN Chest 03/25/17 05/31/23 tablet (Nitrostat) Pain ##0 Glucose Test Strips #1 ea 10/20/19 05/31/23 clopidogrel 75 mg tablet (Plavix) 75 mg PO Q DAY ##0 10/20/19 05/31/23 metformin 500 mg tablet,extended 500 mg PO BID #0 tabs 10/20/19 05/31/23 release 24 hr (Glucophage XR) acetaminophen 500 mg tablet 500 mg PO QID PRN Pain (Scale 11/19/19 05/31/23 (Tylenol Extra Strength) Score 1-3) aspirin 81 mg chewable tablet 81 mg PO DAILY 11/19/19 05/31/23 lisinopril 20 mg tablet 40 mg PO BID #0 tabs 01/20/20 05/31/23 empagliflozin 25 mg tablet 25 mg PO DAILY 03/31/23 05/31/23 (Jardiance) tamsulosin 0.4 mg capsule 0.4 mg PO DAILY 04/30/23 05/31/23 Previous Rx's Medication Instructions Recorded carvedilol 12.5 mg tablet 12.5 mg PO BID #180 tabs 11/07/19 atorvastatin 80 mg tablet (Lipitor) 80 mg PO Q DAY #90 tabs 11/22/20 nitrofurantoin 100 mg PO Q12H 5 days #10 caps 06/11/23 monohydrate/macrocrystals 100 mg capsule (Macrobid) nitroglycerin 0.4 mg sublingual 0.4 mg sublingual Q5-15M PRN chest 06/11/23 tablet pain #25 tabs phenazopyridine 100 mg tablet 100 mg PO TID PRN pain 6 doses #6 06/11/23 (Pyridium) tabs Allergies Allergy/AdvReac Type Severity Reaction Status Date / Time Penicillins Allergy Unknown Hives Verified 04/30/23 07:01 Sulfa (Sulfonamide Allergy Unknown Hives Verified 04/30/23 07:01 Antibiotics) [SULFA (SULFONAMIDE ANTIBIOTICS)] Review of Systems Review of Systems ROS Unobtainable: All systems reviewed & are unremarkable except as noted in HPI and below Patient History Medical History Recurrent UTI (urinary tract infection) Incomplete bladder emptying History of UTI CAD S/P percutaneous coronary angioplasty (03/26/18) Non-ST elevation [place] (NSTEMI) (11/27/17) Myocardial infarction (~2006) Urinary retention Neuropathy Sciatic nerve disease (~2016) Shoulder pain (~2007) Foot pain (~2006) Carpal tunnel syndrome (~2002) Ankle pain (~1977) H/O adenomatous polyp of colon Essential hypertension Mixed hyperlipidemia Type 2 diabetes mellitus (~2009) BPH w urinary obs/LUTS History of primary bladder cancer (~2006) Coronary heart disease (~2006) Low back pain (~1982) Surgical History Bladder cancer (~2006) H/O hernia repair (~2003) H/O umbilical hernia repair Hx of heart artery stent Family History Brother Crohn disease Father History of heart disease Hyperlipidemia Hypertension Stroke Family/Other No problems noted. Social History household members: spouse Smoking Status: Former smoker alcohol intake: current substance use type: marijuana Type(s) of exercise: walking Smoking Status: Former smoker alcohol intake frequency: a few times a week Substance Use Type: does not use Exam Initial Vital Signs Initial Vital Signs: Vital Signs Temperature 98.3 F 06/11/23 03:30 Pulse Rate 62 06/11/23 03:30 Respiratory Rate 18 06/11/23 03:30 Blood Pressure 129/70 06/11/23 03:30 Pulse Oximetry 100 06/11/23 03:30 Oxygen Delivery Method Room Air 06/11/23 03:30 Const General: cooperative, comfortable and No ill appearing HENMT Head: normal to inspection and normocephalic Resp Effort & Inspection: normal respiratory effort Auscultation: clear to auscultation bilaterally Cardio Rate: regular rate Rhythm: regular rhythm GI Inspection: normal to inspection and non-distended Skin General: no rashes or lesions noted Neuro General: patient alert, patient awake and moves all extremities Scores HEART Score Heart Score history: Slightly Suspicious Heart Score EKG: Normal Heart Score Age: 45-64 years old Heart Score risk factors: > 3 risk factors or hx of atherosclerotic disease Heart Score troponin: < or = to normal limit Heart Score Total: 3 Course Orders Ordered: ED Orders 06/11/23 03:18 Complete Blood Count AUTO DIFF Stat Comprehensive Metabolic Panel Stat Lipase Stat Magnesium Stat Troponin & CK Cardiac Panel Stat 06/11/23 03:27 XR chest 1V Stat EKG-12 Lead Stat 06/11/23 04:25 Urine Culture Stat Urine Microscopic Stat 06/11/23 05:36 Troponin & CK Cardiac Panel Stat Discontinued Medications Phenazopyridine HCl (Phenazopyridine 100 Mg Tablet) 100 mg PO NOW ONE Stop: 06/11/23 06:24 Vital Signs Vital signs: Vital Signs - 8 hr 06/11/23 03:30 Temperature 98.3 F Pulse Rate 62 Respiratory Rate 18 Blood Pressure 129/70 Pulse Oximetry 100 Oxygen Delivery Method Room Air MDM - Chest Pain Medical Records Data Attestation: I reviewed the patient's medical records. Lab Data Attestation: I reviewed the patient's lab results. 06/11/23 03:18 06/11/23 03:18 Labs: Lab Results 06/11/23 06/11/23 06/11/23 Range/Units 03:18 04:25 05:36 WBC 7.4 (4.5-11.0) X10^3/uL RBC 4.95 (4.5-5.9) X10^6/uL Hgb 13.4 L (13.5-17.5) g/dL Hct 40.3 L (41-53) % MCV 81.5 (80-100) fL MCH 27.0 (26-34) PG MCHC 33.2 (30-36) % RDW 14.7 (11.6-14.8) % Plt Count 145 L (150-400) X10^3/uL Neut % (Auto) 74.4 (50-75) % Lymph % (Auto) 16.9 L (25-40) % [place] % (Auto) 6.4 (3-14) % Eos % (Auto) 1.8 L (2-4) % Baso % (Auto) 0.5 (0-2) % Neut # (Auto) 5500 (1745-1376) /uL Lymph # (Auto) 1300 (3038-7983) /uL [place] # (Auto) 500 (0-900) /uL Eos # (Auto) 100 (0-450) /uL Baso # (Auto) 0 (0-100) /uL Sodium 135 L (137-145) mmol/L Potassium 4.6 (3.4-5.1) mmol/L Chloride 103 (98-107) mmol/L Carbon Dioxide 26 (22-32) mmol/L BUN 23 H (9-20) mg/dL Creatinine 0.86 (0.66-1.25) mg/dL Estimated GFR > 60 (>60) mL/min BUN/Creatinine Ratio 26.7 H (6-22) Glucose 134 H (80-110) mg/dL Calcium 9.7 (8.4-10.2) mg/dL Magnesium 1.8 (1.6-2.3) mg/dL Total Bilirubin 0.5 (0.2-1.3) mg/dL AST 41 (17-59) IU/L ALT 38 (<50) IU/L Alkaline Phosphatase 79 (38-126) U/L Total Creatine Kinase 43 L 38 L (55-170) U/L Troponin I < 0.012 < 0.012 (0.01-0.034) ng/mL Total Protein 7.8 (6.3-8.2) g/dL Albumin 5.0 (3.5-5.0) g/dL Globulin 2.8 (1.7-4.1) g/dL Albumin/Globulin Ratio 1.8 (1.0-2.8) Lipase 366 H (23-300) U/L Urine RBC 1-5/hpf (0-5/HPF) Urine WBC >100/hpf H (0-5/HPF) Ur Squamous Epith Cells 0-1 /hpf (0-5/HPF) Urine Bacteria Moderate (10-30) H (None) Ur Culture Indicated? Cult not indicated Vol Urine Centrifuged 10ml (spun) Urine Dip Bedside Urine Glucose Negative Bedside Urine Bilirubin - Negative Bedside Urine Ketone - Negative Urine Specific Mather 1.020 Bedside Urine Occult Blood +++ Bedside Urine pH 6.0 Bedside Urine Protein + 30 Bedside Urine Urobilinogen - Negative Bedside Urine Nitrite - Negative Bedside Urine Leukocytes ++ 125 Esterase Imaging Data Chest x-ray: Radiologist's Impression: No acute process ECG Data Attestation: I personally reviewed and interpreted this ECG as follows: Interpretation: Sinus rhythm Ventricular rate is 61 Normal axis Normal QRS Normal QTC No ST T wave changes MDM Narrative Medical decision making narrative: Nonischemic EKG. Troponins are negative x2. Low risk heart score. Chest x-ray is unremarkable. Patient is now chest pain-free. Plan will be is to discharge patient home with instructions to contact his primary care doctor and integrated program teacher for follow-up. Will refill his nitroglycerin as his current prescription maybe out of date. He was also having UTI symptoms. His urinalysis today would be concerning for UTI based on his symptoms. He has had recurrent UTI. Patient has had Enterococcus in the past. He is taken Macrobid and he thinks that this is helped his symptoms. His prior urine cultures have been susceptible to Macrobid. Will discharge home with a prescription for this antibiotic. There was a urine culture pending in his discharge we will contact him if we need to change antibiotics based on this. He was given return precautions. He expressed understanding and agreement. Discharge Plan Departure Patient Disposition: Home Clinical Impression: Atypical chest pain, Urinary tract infection Instructions: DI for Urinary Tract Infection (UTI), DI for Atypical Chest Pain Activity Restrictions/Additional Instructions: There was a urine culture pending at the time of your discharge and we will contact you if we need to change antibiotics based on this. Recommend that you contact your integrated program teacher for follow-up and return to the emergency department for new or worsening symptoms. Prescriptions: New nitrofurantoin monohyd/m-cryst [Macrobid] 100 mg capsule 100 mg PO Q12H 5 Days Qty: 10 0RF Rx Instructions: must administer with a meal/food phenazopyridine [Pyridium] 100 mg tablet 100 mg PO TID PRN (Reason: pain) Qty: 6 0RF nitroglycerin 0.4 mg tablet, sublingual 0.4 mg sublingual Q5-15M PRN (Reason: chest pain) Qty: 25 0RF Rx Instructions: do not exceed 3 doses per episode No Action nitroglycerin [Nitrostat] 0.4 MG tablet, sublingual 0.4 mg sublingual Q5MIN PRN (Reason: Chest Pain) Qty: 0 carvedilol 12.5 mg tablet 12.5 mg PO BID Qty: 180 3RF Rx Instructions: must administer with a meal/food atorvastatin [Lipitor] 80 mg tablet 80 mg PO Q DAY Qty: 90 0RF Rx Instructions: PT DUE FOR APPT W/PCP PRIOR TO END OF RX. PLEASE CALL TO SCHEDULE. THANKS 11/22/20 (DME) Glucose Test Strips Qty: 1 Rx Instructions: Tests 4x a day/ metformin [Glucophage XR] 500 mg tablet extended release 24 hr 500 mg PO BID Qty: 0 clopidogrel [Plavix] 75 mg tablet 75 mg PO Q DAY Qty: 0 lisinopril 20 mg tablet 40 mg PO BID Qty: 0 acetaminophen [Tylenol Extra Strength] 500 mg Tablet 500 mg PO QID PRN (Reason: Pain (Scale Score 1-3)) aspirin 81 mg Tablet,Chewable 81 mg PO DAILY Jardiance 25 mg tablet 25 mg PO DAILY tamsulosin 0.4 mg capsule 0.4 mg PO DAILY Referrals: Julita Fan MD [Primary Care Provider] - Stand Alone Forms: Patient Portal/API
[2023-06-11 03:51] LABS: Alanine Aminotransferase 38 IU/L (<50); Albumin Globulin Ratio 1.8 (1.0-2.8); Alkaline Phosphatase 79 U/L (38-126); Aspartate Aminotransferase 41 IU/L (17-59); BUN Creatinine Ratio 26.7 (6-22); Bilirubin Total 0.5 mg/dL (0.2-1.3); Blood Urea Nitrogen 23 mg/dL (9-20); Calcium 9.7 mg/dL (8.4-10.2); Carbon Dioxide 26 mmol/L (22-32); Chloride 103 mmol/L (98-107); Creatine Kinase 43 U/L (55-170); Estimated Glomerular Filt Rate > 60 mL/min (>60); Globulin 2.8 g/dL (1.7-4.1); Glucose 134 mg/dL (80-110); HEMOLYSIS < 15 (0-50); Lipase 366 U/L (23-300); Magnesium 1.8 mg/dL (1.6-2.3); Potassium 4.6 mmol/L (3.4-5.1); Sodium 135 mmol/L (137-145); Total Protein 7.8 g/dL (6.3-8.2)
[2023-06-11 04:02] LABS: Troponin I < 0.012 ng/mL (0.01-0.034)
[2023-06-11 04:56] LABS: Urine Volume 10mL (spun)
[2023-06-11 04:57] LABS: Bacteria Urine Moderate (10-30); Culture Indicated Urine Cult Not Indicated; RBC Urine 1-5/HPF (0-5/HPF); Squamous Epithelial Cell Urine 0-1 /HPF (0-5/HPF); WBC Urine >100/HPF (0-5/HPF)
[2023-06-11 05:53] LABS: Creatine Kinase 38 U/L (55-170)
[2023-06-11 06:06] LABS: Troponin I < 0.012 ng/mL (0.01-0.034)
[2023-06-11] MEDS: PHENAZOPYRIDINE 100 MG TABLET PO (06:31)
[2023-06-11 06:40] VITALS: BP 121/70; PULSE 61; RESP 18; O2SAT 98
== END 2023-06-11 06:42 | disposition home or self-care (01) ==
PROVIDERS: Emergency Provider Emergency Medicine; PCP Internal Medicine
DX: R07.89 Other chest pain (principal); N39.0 Urinary tract infection, site not specified; I25.2 Old myocardial infarction; Z95.5 Presence of coronary angioplasty implant and graft; Z79.899 Other long term (current) drug therapy
CPT/HCPCS: 36415; 71045; 80053; 81003; 81015; 82550; 83690; 83735; 84484; 85025; 87077; 87086; 87186; 93005; 99284

== ENCOUNTER → 2023-10-04 12:25 | Outpatient (CLI) | payer MEDICARE, SELFPAY ==
[2023-10-04 13:13] LABS: BUN Creatinine Ratio 18.8 (6-22); Blood Urea Nitrogen 15 mg/dL (9-20); Calcium 9.4 mg/dL (8.4-10.2); Carbon Dioxide 25 mmol/L (22-32); Chloride 101 mmol/L (98-107); Estimated Glomerular Filt Rate > 60 mL/min (>60); Glucose 183 mg/dL (80-110); HEMOLYSIS < 15 (0-50); Potassium 4.6 mmol/L (3.4-5.1); Sodium 135 mmol/L (137-145)
== END ==
PROVIDERS: PCP Internal Medicine; Referring Provider Internal Medicine Cardiovascular Disease; Visit Provider Internal Medicine Cardiovascular Disease
DX: R07.9 Chest pain, unspecified (principal)
CPT/HCPCS: 36415; 80048

== ENCOUNTER → 2023-11-28 14:29 | Outpatient (CLI) | payer MEDICARE, SELFPAY | PROVIDERS: PCP Internal Medicine; Visit Provider Urology | DX: N39.0 Urinary tract infection, site not specified (principal); N40.1 Benign prostatic hyperplasia with lower urinary tract symptoms; N13.8 Other obstructive and reflux uropathy; R39.11 Hesitancy of micturition; Z12.5 Encounter for screening for malignant neoplasm of prostate; Z87.440 Personal history of urinary (tract) infections; Z85.51 Personal history of malignant neoplasm of bladder | CPT/HCPCS: 51798; 81002; 87077; 87086; 87186; 99213 ==

== ENCOUNTER → 2024-04-30 11:22 | Outpatient (CLI) | payer MEDICARE, SELFPAY ==
--- NOTE | 2024-04-30 11:25 | DI.US.S_ITS ---
PROCEDURE: US ABD AORTA ANEURYSM SCREEN INDICATIONS: SCREENING FOR AAA TECHNIQUE: Real time scanning was performed of the aorta and iliac arteries, with image documentation. COMPARISON: [facility], CT, CT ABDOMEN PELVIS W CON, 12/18/2022, 14:20. FINDINGS: Aorta: Proximal aortic diameter measures 3 cm. Mid-aorta measures 2.1 cm. Distal aortic diameter is 3.1 cm. Iliac arteries: Right common iliac artery measures 1.1 cm. Left common iliac artery measures 1 cm. IMPRESSION: Minimally aneurysmal abdominal aorta, measuring 3 cm proximally and 3.1 cm distally. By published criteria, ultrasound follow-up is recommended in 3 years. Dictated by: Mahin Mark M.D. on 04/30/2024 at 13:42 Approved by: Mahin Mark M.D. on 04/30/2024 at 13:43
== END ==
PROVIDERS: PCP Internal Medicine; Referring Provider Internal Medicine; Visit Provider Internal Medicine
DX: Z13.6 Encounter for screening for cardiovascular disorders (principal)
CPT/HCPCS: 76706

== ENCOUNTER 2025-01-05 07:10 | Day surgery (SDC) | payer MEDICARE, SELFPAY ==
[2024-12-24 14:26] VITALS: BMI 28.2
[2025-01-05] VITALS (7 sets, daily range): BP systolic 93–109; BP diastolic 50–65; PULSE 51–68; RESP 14–16; TEMP 36.4–36.9; O2SAT 94–99
--- NOTE | 2025-01-05 | PATH_ITS ---
[facility] Accession Number: [id number] No. of containers..01 Tissue . 01 Material submitted: . colon - COLON, POLYP @ 80CM . 01 Diagnosis: COLON POLYP AT 80 CM: Tubular adenoma. MRV 01/12/2025 1344 Local . 01 Electronically signed: . Estefany Ponce MD, Pathologist NPI- [id number] . 01 Gross description: . Received in formalin with two identifiers and colon polyp at 80 cm, are five betts soft tissue fragments 0.2 to 0.8 cm in greatest dimension. Submitted entirely in cassette A1. ([id number]) /ALLIE 01/07/2025 1002 Local . 01 Pathologist provided ICD-10: D12.6 . 01 CPT . 401579 Specimen Comment: A courtesy copy of this report has been sent to [phone] Performed at: [address] [facility] [address], [place], [place] [id number] MD Сергей Huff MD Phone: [phone]
--- NOTE | 2025-01-05 08:26 | P.HP_ITS ---
History of Present Illness History of Present Illness Date Patient Seen: 01/05/25 Chief complaint: Screening Colonoscopy [facility] Medical History (Updated 12/24/24 @ 14:38 by Kriss Simmons RN) Ascending aorta dilatation Ischemic cardiomyopathy Recurrent UTI (urinary tract infection) Incomplete bladder emptying History of UTI CAD S/P percutaneous coronary angioplasty (03/26/18) Non-ST elevation [place] (NSTEMI) (11/27/17) Myocardial infarction (~2006) Urinary retention Neuropathy Sciatic nerve disease (~2016) Shoulder pain (~2007) Foot pain (~2006) Carpal tunnel syndrome (~2002) Ankle pain (~1977) H/O adenomatous polyp of colon Essential hypertension Mixed hyperlipidemia Type 2 diabetes mellitus (~2009) BPH w urinary obs/LUTS History of primary bladder cancer (~2006) Coronary heart disease (~2006) Low back pain (~1982) Surgical History (Updated 12/24/24 @ 14:42 by Kriss Simmons RN) Hx of cystoscopy (04/30/23) Bladder cancer (~2006) H/O hernia repair (~2003) H/O umbilical hernia repair Hx of heart artery stent Family History Brother Crohn disease Father History of heart disease Hyperlipidemia Hypertension Stroke Family/Other No problems noted. Social History household members: spouse Smoking Status: Smoker, status unknown alcohol intake: current substance use type: marijuana Type(s) of exercise: walking Meds Home Medications and Allergies Home Medications ?Medication ?Instructions ?Recorded ?Confirmed ?Type nitroglycerin 0.4 mg sublingual 0.4 mg sublingual Q5MI N PRN Chest 03/25/17 06/05/24 History tablet (Nitrostat) Pain ##0 Glucose Test Strips #1 ea 10/20/19 06/05/24 Hist ory clopidogrel 75 mg tablet (Plavix) 75 mg PO Q DAY ##0 0 10/20/19 01/05/25 History metformin 500 mg tablet,extended 500 mg PO BID #0 tabs 10/20/19 01/05/25 History release 24 hr (Glucophage XR) carvedilol 12.5 mg tablet 12.5 mg PO BID #180 tabs 03/2701/05/25 Rx acetaminophen 500 mg tablet 500 mg PO QID PRN Pain (Sc pacheco 11/19/19 06/05/24 History (Tylenol Extra Strength) Score 1-3) aspirin 81 mg chewable tablet 81 mg PO DAILY 11/19/19 06/05/24 History lisinopril 20 mg tablet 40 mg PO BID #0 tabs 2 0 01/05/25 History atorvastatin 80 mg tablet (Lipitor) 80 mg PO Q DAY #90 tabs 11/22/20 01/05/25 Rx tamsulosin 0.4 mg capsule 0.4 mg PO DAILY 04/30/2303/01 History nitroglycerin 0.4 mg sublingual 0.4 mg sublingual Q5-1 5M PRN chest 06/11/23 06/05/24 Rx tablet pain #25 tabs phenazopyridine 100 mg tablet 100 mg PO TID PRN pain 6 doses #6 06/11/23 06/05/24 Rx (Pyridium) tabs sodium,potassium,mag sulfates 17.5 See Rx Instructions PO .COMPLEX 11/27/24 Rx gram-3.13 gram-1.6 gram oral soln #354 mL (Suprep Bowel Prep Kit) empagliflozin 25 mg tablet 25 mg PO DAILY 01/05/2503/01 History (Jardiance) Allergies Allergy/AdvReac Type Severity Reaction Status Date / Time Penicillins Allergy Unknown Hives Verified 06/05/24 15:28 Sulfa (Sulfonamide Allergy Unknown Hives Verified 06/05/24 15:28 Antibiotics) (SULFA (SULFONAMIDE ANTIBIOTICS)) Exam Vital Signs (past 8 hours): - 01/05/25 07:37 Temperature 98.5 F Pulse Rate 65 Respiratory Rate 14 Blood Pressure 109/65 Pulse Oximetry 99 Oxygen Delivery Method Room Air Oxygen Delivery Method Room Air Narrative Exam Narrative: Oropharynx free of lesions Chest clear to auscultation percussion Cardiac exam reveals no S3 or murmur Assessment & Plan Assessment & Plan narrative: History of colon polyps need for follow-up colonoscopy. Risks, benefits, alternatives have been explained. Time-Based Coding :: [TOTAL MINUTES] spent with patient and on the chart (including review of chart, obtaining history, exam, reviewing outside data, placing orders, documenting exam and treatment plan, and counseling patient) on [DATE]. PROFEE Child Support Officer Document charge(s): No
--- NOTE | 2025-01-05 08:28 | P.OP.COLON_ITS ---
Operative Date/Time/Diagnoses Date of procedure: 01/05/25 Time of procedure: 09:03 Pre-op diagnosis: Indications history of colon polyps Post-op diagnosis: same Procedure & Clinicians Study performed: Colonoscopy Same procedure(s) as scheduled: Yes Indications: History of colon polyps Surgeon: Konstantin Nguyen Anesthesia Type: MAC +/- Procedure Notes Procedure in detail: After informed consent was obtained the patient was placed in left lateral decubitus position. The video colonoscope was introduced the rectum slowly advanced cecum. Preparation was good. On slow withdrawal mucosa was carefully examined. The scope was removed. The patient tolerated procedure well. Complications none Blood loss none Sedation mac Findings 1. 1.2 cm sessile polyp at 80 cm taken off in piecemeal fashion with a cold snar e. All parts were retrieved. 2. Otherwise negative colonoscopy to cecum Patient will need follow-up colonoscopy in 3 years and we will be in touch regarding his pathology Estimated Blood Loss: 0 Complications: none
[2025-01-05] MEDS: LACTATED RINGERS 1,000 ML 42 ML IV (09:07)
== END 2025-01-05 09:38 | disposition home or self-care (01) ==
PROVIDERS: PCP Internal Medicine; Referring Provider Internal Medicine; Visit Provider Internal Medicine Gastroenterology
PROC: 0DJD8ZZ Inspection of Lower Intestinal Tract, Via Natural or Artificial Opening Endoscopic (ICD-10-PCS; CPT 45378; principal; 2025-01-05 08:30)
DX: Z12.11 Encounter for screening for malignant neoplasm of colon (principal); Z86.0100 Personal history of colon polyps, unspecified; D12.6 Benign neoplasm of colon, unspecified
CPT/HCPCS: 45385; J2704; J7120